=== PATIENT | female | born 1945 | race Two or more races ===

== ENCOUNTER → 2022-09-17 | Outpatient (CLI) | payer MEDICARE ==
--- NOTE | 2022-09-19 20:42 | PE ---
EXAMINATION TYPE: PET CT fusion skull to thigh DATE OF EXAM: 09/17/2022 CLINICAL INDICATION:Female, 77 years old with history of R91.1; TECHNIQUE: Following the intravenous administration of 11.2 mCi of F-18 FDG, whole body images are performed from the skull base to the midthigh. Images are reviewed on the computer in the coronal, a xial, and sagittal planes. Reconstructed rotating images are created on independent workstation and reviewed on the computer. A non-contrast CT is performed in conjunction with the PET scan. Glucose level 87 mg/dL COMPARISON: CT 08/16/2022, PET/CT None, FINDINGS: Mediastinal SUV mean is 1.7. Hepatic parenchyma SUV mean is 2.5. SKULL BASE AND NECK: No suspicious radiotracer activity. CHEST, MEDIASTINUM, AND HILAR REGION: * Right upper lung pulmonary nodule measuring 15 mm with groundglass some surrounding it in totality measuring including the groundglass 24 mm. Max SUV 5.8 * Left upper lobe anterior pulmonary nodule measuring 2.9 x 2.1 cm Max SUV 6.6 * Smaller right upper lobe pulmonary nodule measuring 6 mm Max SUV 0.8. * Partially calcified right subcarinal lymph node. ABDOMEN AND PELVIS: No suspicious radiotracer activity. OSSEOUS STRUCTURES: Right iliac bone FDG avid lesion which appears lucent on CT measuring 23 mm max SUV 7.[address]: Atherosclerosis of the carotid bifurcations. Bilaterally aphakia. Paranasal sinus disease i n the left maxillary sinus with mucosal thickening. Coronary artery atherosclerosis. Heart is mildly enlarged for size. The gallbladder surgically absent. Small hiatal hernia. Fat-containing umbilical h ernia is tiny. Scattered colonic diverticula. Left fat-containing inguinal hernia. IMPRESSION: There are 2 FDG avid pulmonary nodules and one that is below the sensitivity of PET/CT. The largest i n the left upper lobe anteriorly and the right lateral upper lobe are most suspicious. No FDG avid ly mph nodes within the mediastinum are identified. There is additionally FDG avid right iliac bone intr aosseous lesion. Findings could represent left upper lobe primary malignancy with metastatic disease to the right lung. The right iliac bone lesion is unusual given lack of mediastinal other sites of me tastatic disease and could represent a separate etiology. Given its somewhat nonaggressive appearance on CT both malignant and benign etiologies remain in the differential.
== END | disposition home or self-care (01) ==
LOC: RADPETMAIN 09:53
PROVIDERS: ATTEND Internal Medicine
DX: R91.8 Other nonspecific abnormal finding of lung field (principal)
CPT/HCPCS: 78815; A9552

== ENCOUNTER 2022-10-20 06:11 | Day surgery (SDC) | payer MEDICARE ==
[2022-10-18 10:47] VITALS: BMI 29.2
[~2022-10-20 06:11] MED LIST: LACTATED RINGERS 1,000 ML IV SCH
[2022-10-20] MEDS ORDERED: ONDANSETRON 4 MG/2 ML VIAL ONE (07:14)
[2022-10-20] MEDS ORDERED: DEXAMETHASONE SOD PHOSPHATE 4 MG/ML 1 ML VIAL IVP ONE (07:17)
[2022-10-20] MEDS: ONDANSETRON 4 MG/2 ML VIAL IVP ONE ×2 (07:17→09:27)
--- NOTE | 2022-10-20 07:21 | CT ---
EXAMINATION TYPE: CT chest wo con DATE OF EXAM: 10/20/2022 COMPARISON: PET/CT additional nodularity right upper lobe measuring 9.3 mm and 10 mm. Pleural-based m ass right upper lobe HISTORY: pre bronchial navigation CT DLP: 422.[address] of the chest was performed with lung and mediastinal window settings submitted. The la ck of contrast limits evaluation of the vascular, mediastinal and parenchymal structures including th e upper abdomen. LUNGS: Left upper lobe mass medially measures approximately 2.2 x 1.8 x 2 cm. The mass abuts the medi astinum. Additional pleural-based nodule with irregular margins right midlung zone laterally with ple ural extension measures 1.7 x 1.6 cm. Groundglass nodular density right middle lobe anteriorly measur es 9 mm. Additional groundglass nodular density left upper lobe anteriorly measures 1.4 cm image 135. MEDIASTINUM/IMER: Thoracic aorta is of normal caliber with limited evaluation given lack of contrast . 1 cm short axis AP window lymph node. Calcified subcarinal lymph node. Small hiatal hernia noted. UPPER ABDOMEN: No significant abnormality is seen. OTHER: No significant other abnormality. IMPRESSION: 1. Left upper lobe mass as well as several left pulmonary nodules as discussed above. Findings are f elt to reflect malignancy until proven otherwise.
[2022-10-20] MEDS ORDERED: ROCURONIUM 10 MG/ML (5 ML VIAL) IV ONE (07:30)
[2022-10-20] MEDS ORDERED: SUCCINYLCHOLINE CHLORIDE 200 MG/10 ML VIAL IV ONE (07:30)
[2022-10-20] MEDS ORDERED: GLYCOPYRROLATE 0.2 MG/ML 2 ML VIAL ONE (07:30)
[2022-10-20] MEDS ORDERED: fentaNYL (PF) 50 MCG/ML 2 ML AMP ONE (07:30)
[2022-10-20] MEDS ORDERED: PROPOFOL 10 MG/ML 20 ML VIAL IV ONE (07:30)
[2022-10-20] MEDS ORDERED: NEOSTIGMINE 1 MG/ML 10 ML VIAL ONE (07:30)
--- NOTE | 2022-10-20 09:00 | P.PCN ---
Date of Procedure: 10/20/22 Operative Findings: Preoperative Diagnosis: Left upper lobe mass Right upper lobe mass Postoperative Diagnosis: Right upper lobe mass Left upper lobe mass Procedure(s) Performed: Flexible bronchoscopy Robotic-assisted bronchoscopy and addition to radial ultrasound evaluation of the lung mass Robotic-assisted test monitor needle aspirate, transbronchial biopsies, transbronchial brushing of the left upper lobe mass Robotic-assisted test monitor needle aspirate, transbronchial biopsies, transbronchial brushing of the right upper lobe mass in addition to a bronchioloalveolar lavage Anesthesia: DAFNE Surgeon: Larry Clarke Estimated Blood Loss (ml): 0 Pathology: other Condition: stable Disposition: same day Operative Findings: A physical exam was performed. Informed consent was obtained from the patient after explaining all the risks (pneumothorax, life threatening bleeding, infection and adverse effects due to medications), benefits and alternatives to the procedure which the patient appeared to understand and so stated. The patient was connected to the monitoring devices. General anesthesia was induced and the patient was intubated by anesthesia. A final timeout was performed and the procedure confirmed by the attending staff bronchoscopist. The bronchoscope was inserted and the airway examined. The flexible bronchoscope was removed and the robotic bronchoscope was inserted. Registration was completed. I next guided the robotic bronchoscope using the navigation system into the left upper lobe apical segment. Once in proper position, the bronchoscope was frozen. The radial EBUS probe was placed through the bronchoscope and confirmed abnormal u/s images vs normal lung. A needle was placed through the working channel and under fluoroscopic guidance, we sampled the area thought to have the mass twice. We then used a cloud biopsy pattern with ultrasound confirmation for 2 additional passes with the needle. U/S evaluation was then used to reconfirm location. Forceps were next introduced through working channel and extended the appropriate distance and 3 transbronchial biopsies were performed using fluoroscopic guidance. The u/s probe was then reinserted to confirm location. When confirmed this process was repeated for a total of 6 transbronchial biopsies. After reassessment with EBUS, a brush was placed through the extendable working channel for 1 pass with fluoroscopic guidance. U/S evaluation was then used to confirm location. The robotic bronchoscope was then directed to the right upper lobe. I next guided the robotic bronchoscope using navigation system into the anterior s egment of the right upper lobe. Once in proper position, the bronchoscope was frozen. The radial EBUS probe was placed through the bronchoscope and confirmed abnormal u/s images vs normal lung. A needle was placed through the working channel and under fluoroscopic guidance, we sampled the area thought to have the mass twice. We then used a cloud biopsy pattern with ultrasound confirmation for 2 additional passes with the needle. U/S evaluation was then used to reconfirm location. Forceps were next introduced through working channel and extended the appropriate distance and 3 transbronchial biopsies were performed using fluoroscopic guidance. The u/s probe was then reinserted to confirm location. When confirmed this process was repeated for a total of 6 transbronchial biopsies. Was done 40ml of saline was then instilled into the area of the lesion. The robotic bronchoscope was removed and the airway inspected with a flexible bronchoscope and 10 ml of effluent from the BAL was collected. The aspirate was bloody and ultimately declotted and based on that, the sample was discarded. Fluoroscopic check for pneumothorax was negative upon completion of the procedure. There was 0 ml blood loss with the procedure. FINDINGS: 1.The airways appeared normal 2 Successful navigation, ultrasonographic identification, and biopsies of right upper lobe mass 3.The the radial ultrasound view was (Concentric/Eccentric)}. RECOMMENDATIONS: Await pathology and cytology results The referring physician will be alerted to the results when available. The patient was advised to follow up with the referring physician with the biopsy results Patient will be called with results.
--- NOTE | 2022-10-20 09:14 | FL ---
EXAMINATION TYPE: FL bronchoscopy DATE OF EXAM: 10/20/2022 CLINICAL HISTORY: Abnormal lung finding TECHNIQUE: Fluoroscopy. COMPARISON: None. RUL AND RYLIE BX FOR 2 SEPARATE LESIONS, 2MIN 42SEC FL TIME, DAP=[id number]
[2022-10-20 09:17] VITALS: TEMP 97
[2022-10-20] MEDS ORDERED: fentaNYL (PF) 50 MCG/ML 2 ML AMP IVP ONE (09:41)
[2022-10-20] MEDS ORDERED: LACTATED RINGERS 1,000 ML IV ONE (09:52)
--- NOTE | 2022-10-20 09:59 | XR ---
EXAMINATION TYPE: XR chest 1V DATE OF EXAM: 10/20/2022 HISTORY: Status post bronchoscopy. COMPARISON: None. TECHNIQUE: Single view of the chest is submitted. FINDINGS: Demonstrated are scattered senescent parenchymal change. Masslike density periphery of the right upper lobe and left apical region. No evidence for pneumothor ax. The heart is stable. Hilar and mediastinal structures are within normal limits. Degenerative changes are seen of the dorsal spine. IMPRESSION: 1. Masslike density periphery of the right upper lobe and left apical region. No evidence for pneumo thorax.
[2022-10-20 10:36] VITALS: BP 132/72; PULSE 68; RESP 20
== END 2022-10-20 11:01 | disposition home or self-care (01) ==
LOC: ORWHC2ENDO 06:11
PROVIDERS: ATTEND Internal Medicine Critical Care Medicine
DX: C34.12 Malignant neoplasm of upper lobe, left bronchus or lung (principal); C34.11 Malignant neoplasm of upper lobe, right bronchus or lung; E04.9 Nontoxic goiter, unspecified; E78.5 Hyperlipidemia, unspecified; F32.A Depression, unspecified; R00.1 Bradycardia, unspecified; Z87.01 Personal history of pneumonia (recurrent); K44.9 Diaphragmatic hernia without obstruction or gangrene; L71.9 Rosacea, unspecified; M19.90 Unspecified osteoarthritis, unspecified site; M79.7 Fibromyalgia; Z81.1 Family history of alcohol abuse and dependence; Z83.3 Family history of diabetes mellitus; Z82.49 Family history of ischemic heart disease and other diseases of the circulatory system; Z80.9 Family history of malignant neoplasm, unspecified; Z98.51 Tubal ligation status; Z98.49 Cataract extraction status, unspecified eye; Z90.710 Acquired absence of both cervix and uterus; Z90.49 Acquired absence of other specified parts of digestive tract; Z98.890 Other specified postprocedural states; Z79.899 Other long term (current) drug therapy; Z88.4 Allergy status to anesthetic agent; Z88.5 Allergy status to narcotic agent
CPT/HCPCS: 87798 ×3; 87496; 87498; 87529; 88108; 88305; 88173; 88342; 87502; 87634; 88341; 87070; 87205; 87116; 87102; 87206; 71045; 71250; 31628; 31629; 31623; 31624; 31654; J0330; J1100; J2710; J2405; J3010; J2704; S2900; 31633

== ENCOUNTER → 2022-11-04 | Outpatient (CLI) | payer MEDICARE ==
--- NOTE | 2022-11-04 17:32 | MR ---
EXAMINATION TYPE: MR brain wo/w con DATE OF EXAM: 11/04/2022 COMPARISON: None HISTORY: Diagnosed with lung cancer CONTRAST: Performed utilizing 8 mL intravenous Gadavist gadolinium contrast. TECHNIQUE: Multiplanar, multiecho imaging on a 3.0 Mandy magnet is performed through the brain. Stud y is performed within 24 hours of arrival to the hospital. The craniovertebral junction is normal. The pituitary is normal. Diffusion-weighted imaging is performed. No abnormal hyperintensity is present to suggest an acute i ntracranial infarct or acute ischemic change. There are scattered punctate areas of hyperintensity on T2 and Inversion Recovery weighted sequences which are non-specific but can be related to microvascular ischemic changes. Ventricles and sulci are appropriate for the patient age. IMPRESSIONS: 1. No suspicious masses or enhancement to suggest metastatic disease. 2. Scattered punctate deep white matter changes likely on the basis of chronic white matter ischemic type changes.
== END | disposition home or self-care (01) ==
LOC: RADMRIMAIN 07:48
PROVIDERS: ATTEND Internal Medicine Hematology & Oncology
DX: C34.12 Malignant neoplasm of upper lobe, left bronchus or lung (principal); R90.82 White matter disease, unspecified
CPT/HCPCS: 70553; A9585

== ENCOUNTER → 2023-02-27 | Outpatient (CLI) | payer MEDICARE ==
[2023-02-27 12:06] LABS: African American GFR (CKD) >90 (>60 ml/min/1.73 sqM); Blood Urea Nitrogen 13 mg/dL (7-17); Non-African American GFR(CKD) 89 (>60 ml/min/1.73 sqM)
--- NOTE | 2023-02-27 12:47 | CT ---
EXAMINATION TYPE: CT chest w con DATE OF EXAM: 02/27/2023 COMPARISON: Chest CT October 20, 2022 and PET/CT September 17, 2022 HISTORY: Lung and bone CA. CT DLP: 484.0 mGycm. Automated Exposure Control for Dose Reduction was Utilized. TECHNIQUE: CT scan of the thorax is performed following with IV Contrast, patient injected with 100 ml mL of Isovue 300. FINDINGS: LUNGS: Loculated anterior medial left upper lung mass measures 2.7 x 1.6 cm current study axial image 14 versus 3.4 x 2.0 cm prior study axial image 50 fairly stable. Positive treatment response to the smaller spiculated peripheral right midlung mass measuring 1.7 x 1.6 cm prior study image 100 now dolores suring 1.4 x 0.9 cm current study image 21. Smaller ill-defined solid and groundglass nodules are red emonstrated in the bilateral upper to mid lungs. There is new peripheral 2.2 x 1.0 cm left upper lung nodule axial image 13. No pleural effusion or pneumothorax is seen bilaterally. MEDIASTINUM: Stable slightly enlarged 1.6 x 1.2 cm lower prevascular/anterior left hilar lymph node a xial image 27. This was ametabolic on PET. No new greater than 1.0 cm noncalcified thoracic lymph nod es No cardiomegaly or pericardial effusion is seen. Coronary artery calcification is redemonstrated. Stable calcified subcarinal lymph nodes again seen. OTHER: Cholecystectomy clips are redemonstrated. Disc space narrowing at L2-L3 level is redemonstrate d. IMPRESSION: Overall mixed treatment response with some improving and stable areas but new peripheral lesion in the left upper lobe laterally noted.
== END | disposition home or self-care (01) ==
LOC: RADCTMAIN 10:36
PROVIDERS: ATTEND Internal Medicine Hematology & Oncology
DX: C34.12 Malignant neoplasm of upper lobe, left bronchus or lung (principal); C34.2 Malignant neoplasm of middle lobe, bronchus or lung; R91.8 Other nonspecific abnormal finding of lung field
CPT/HCPCS: 82565; 84520; 71260; 36415; Q9967

== ENCOUNTER → 2023-03-16 | Outpatient (CLI) | payer MEDICARE ==
--- NOTE | 2023-03-20 23:21 | PE ---
EXAMINATION TYPE: PET CT fusion skull to thigh DATE OF EXAM: 03/16/2023 COMPARISON: CT chest 02/27/2023 Prior PET/CT: 09/17/2022 HISTORY: Lung cancer TECHNIQUE: Following the intravenous administration of 11.75 mCi of F-18 FDG, whole body images are performed from the skull base to the midthigh. Images are reviewed on the computer in the coronal, a xial, and sagittal planes. Reconstructed rotating images are created on independent workstation and reviewed on the computer. A localization and attenuation correction CT is performed in conjunction with the PET scan. DLP: 707.62 mGycm SCAN: Subsequent Blood glucose: 92 mg/dL Average Mediastinum SUV: 2.4 Average Liver SUV: 3.1 FINDINGS: NECK: No abnormal uptake THORAX: There is increased uptake along the medial anterior left apex with an SUV of 8.15. Example im age 78. Some subtle pleural uptake appears to be present as well. Small nodule in the lateral left ap ex, image 83 does not have significant uptake but has some adjacent pleural uptake. There is a focus of uptake below the sternoclavicular junction with an SUV of 6.96. There is a focus of uptake in the aortopulmonic window image 93, SUV 9.32. An additional hyperintense lymph node is ad jacent to the left main bronchus. Image 98, SUV 12.65. Additional uptake appears to be along the pleural margin at the anterior left lung base, example imag e 127. ABDOMEN: There is uptake along the anterior peritoneal wall, example image 139. PELVIS: No suspicious uptake within the soft tissue pelvis. OSSEOUS STRUCTURES: Large lytic lesion is within the right iliac wing, SUV value along the medial mar gin is 10.76. This appears to extend into the posterior column right acetabulum. LOCALIZATION CT: There is a small left pleural effusion. Minimal pericardial effusion is present. COMPARISON: The anterior medial left apical mass has diminished in size. A previous hyperintense righ t lung nodule has diminished in size and intensity currently measuring 2.67, image 91. The pelvic bon e lesion has increased in size. Mediastinal adenopathy is developing over the interval IMPRESSION: 1. Diminished intensity in size of right and left lung upper lung field nodules. 2. Developing pleural increasing intensity. Neoplastic Pleural involvement should be considered. 3. Developing mediastinal lymphadenopathy. 4. Marked enlargement of the lytic lesion of the right iliac wing. 5. Interval development of a small left pleural effusion and minimal pericardial effusion
== END | disposition home or self-care (01) ==
LOC: RADPETMAIN 09:01
PROVIDERS: ATTEND Internal Medicine Hematology & Oncology
DX: C34.12 Malignant neoplasm of upper lobe, left bronchus or lung (principal); J90 Pleural effusion, not elsewhere classified; I31.39 Other pericardial effusion (noninflammatory); R91.8 Other nonspecific abnormal finding of lung field; R59.0 Localized enlarged lymph nodes
CPT/HCPCS: 78815; A9552

== ENCOUNTER → 2023-05-19 | Outpatient (CLI) | payer MEDICARE ==
--- NOTE | 2023-05-19 18:21 | US ---
EXAMINATION TYPE: US chest DATE OF EXAM: 05/19/2023 COMPARISON: 05/16/2023 - XR Chest CLINICAL INDICATION: Female, 77 years old with history of J90 PLEURAL EFFUSION, NOT ELSEWHERE CLASSIF IED; TECHNIQUE: Targeted ultrasound of the posterior lower left hemithorax EXAM MEASUREMENTS: Right Pleural Effusion pocket size: NA cm Right skin surface to fluid distance: NA cm Left Pleural Effusion pocket size: 4.3 cm Left skin surface to fluid distance: 2.4 cm Left side marked for possible thoracentesis outside the dept. Pulmonologists are able to review the images in the patient?s EMR. IMPRESSIONS: A small to moderate left pleural effusion.
== END | disposition home or self-care (01) ==
LOC: RADUSWWP 11:40
PROVIDERS: ATTEND Internal Medicine
DX: J90 Pleural effusion, not elsewhere classified (principal)
CPT/HCPCS: 76604

== ENCOUNTER → 2023-05-19 | Day surgery (SDC) | payer MEDICARE ==
[~2023-05-19] MED LIST changes: -LACTATED RINGERS 1,000 ML IV SCH; +SODIUM CHLORIDE 0.9% 500 ML 500 ML in EMPTY BAG 1 BAG IV PRN
[2023-05-19 14:04] VITALS: PULSE 109; RESP 20
--- NOTE | 2023-05-19 14:23 | XR ---
EXAMINATION TYPE: XR chest 1V portable DATE OF EXAM: 05/19/2023 COMPARISON: 05/16/2023. HISTORY: Post left thoracentesis. TECHNIQUE: Single frontal view of the chest is obtained. IMPRESSION: There is a large left pleural effusion is slightly smaller than the previous examination. No pneumoth orax is seen. Some patchy parenchymal interstitial changes are seen within the right lung which are very similar to the previous examination. The cardiac silhouette is not well evaluated.
--- NOTE | 2023-05-19 20:28 | OP ---
OPERATIVE REPORT DATE OF SERVICE : PROCEDURE PERFORMED: Left-sided thoracentesis. PREOPERATIVE DIAGNOSIS: Left pleural effusion. POSTOPERATIVE DIAGNOSIS: Left pleural effusion. ANESTHESIA: Used 4 mL of 1% lidocaine. DESCRIPTION OF PROCEDURE: The patient was placed in a sitting upright position, the area below the left scapula was prepared in a sterile fashion. Drapes were applied. The fluid was earlier localized by ultrasound, and the marking was placed at the level of the 8th intercostal space and posterior axillary line. This was done by ammonia refrigeration technician down in the radiology department prior to the procedure. Again, the patient was placed in a supine position, area was prepared in a sterile fashion. Drapes were applied, and at that same level marking, the area was locally anesthetized with lidocaine. Then, a 26-gauge needle inserted at the same site, advanced into the pleural space, fluid was localized with the needle. Then a small tiny incision was made, and a standard thoracentesis catheter and needle were used, inserted at the same site, and as the fluid was obtained from the pleural space, the catheter was advanced over the needle into the pleural space, and the needle was pulled out of the pleural space. Freely flowing fluid was removed, I removed a total of 900 mL of slightly greenish colored fluid, nonbloody, fluid was sent for different diagnostic studies. The procedure was well tolerated, no complications, chest x-ray postoperatively showed no complication, but there was not a significant expansion noted in the left lower lobe post the procedure. Again, improved but not completely expanded. The left lower lobe noted. MMODL / IJN: [id number] /
[2023-05-20 04:17] LABS: Appearance,BF Clear (Clear)
[2023-05-20 06:57] LABS: Glucose, BF Source Pleural fluid; Glucose, Body Fluid 57 mg/dL; LDH, Body Fluid Source Pleural fluid; T. Protein, Body Fluid Source Pleural fluid; Total Protein, Body Fluid >3600 mg/dL
== END ==
LOC: PROCWHC3 13:23
PROVIDERS: ATTEND Internal Medicine
DX: J90 Pleural effusion, not elsewhere classified (principal)
CPT/HCPCS: 32554; 71045; 82945; 83615; 84157; 87070; 87075; 87205; 88108; 88305; 88341; 88342; 89050

== ENCOUNTER 2023-05-30 12:36 | Emergency (ER) | payer MEDICARE ==
--- NOTE | 2023-05-30 13:02 | ED ---
General Adult HPI - General Chief complaint: Shortness of Breath Stated complaint: SOB,Transfer from [facility] Time Seen by Provider: 05/30/23 12:43 Source: patient, family, RN/MD, EMS, RN notes reviewed, old records reviewed (X- ray prior to arrival) Mode of arrival: EMS Limitations: no limitations - History of Present Illness Initial comments: Patient is a pleasant 77-year-old female present to the emergency department with some shortness of breath. Patient has stage IV lung cancer with chronic effusion. Patient did have this drained prior to arrival. Chest x-ray following this did show some trapped lung/pneumothorax. Patient states her breathing is improved overall since prior to the procedure however still feels somewhat short of breath. Patient states is approximately 10 to 20% improved from before the procedure. Patient also has some chronic pain in this region which is also improved and mild at this time. - Related Data Home Medications Medication Instructions Recorded Confirmed Atorvastatin [Lipitor] 10 mg PO DAILY 09/29/22 05/30/23 DULoxetine HCL [Cymbalta] 30 mg PO DAILY 09/29/22 05/30/23 Lisinopril-Hctz 20-25 mg 1 tab PO DAILY 09/29/22 05/30/23 [Zestoretic 20-25] methIMAzole [Tapazole] 5 mg PO DAILY 09/29/22 05/30/23 HYDROcodone/APAP 7.5-325MG [[place] 1 tab PO Q6HR PRN 05/30/23 05/30/23 7.5-325] Allergies Allergy/AdvReac Type Severity Reaction Status Date / Time codeine Allergy chest pain Verified 05/30/23 16:56 & EMERALD lidocaine Allergy chest pain Verified 05/30/23 16:56 & EMERALD morphine Allergy chest pain Verified 05/30/23 16:56 & EMERALD Review of Systems ROS Statement: Those systems with pertinent positive or pertinent negative responses have been documented in the HPI. ROS Other: All systems not noted in ROS Statement are negative. Constitutional: Denies: fever Eyes: Denies: eye pain ENT: Denies: ear pain Respiratory: Reports: as per HPI, dyspnea Cardiovascular: Reports: as per HPI Past Medical History Past Medical History: Cancer, Hyperlipidemia, Hypertension, Thyroid Disorder Additional Past Medical History / Comment(s): spot in pelvis and dr. Ryan saw spot on lung Patient has sciatica pain on left side taking some tylenol for pain 10/18/22, lung CA History of Any Multi-Drug Resistant Organisms: None Reported Past Surgical History: Appendectomy, Cholecystectomy, Hysterectomy Additional Past Surgical History / Comment(s): Colonoscopy Additional Past Anesthesia/Blood Transfusion Reaction / Comment(s): Pain in chest after sedation. No blood transfusion Past Psychological History: No Psychological Hx Reported Smoking Status: Former smoker Past Alcohol Use History: None Reported Past Drug Use History: None Reported - Past Family History Mother Family Medical History: Cancer Additional Family Medical History / Comment(s): multiple myeloma Sister(s) Family Medical History: Cancer Additional Family Medical History / Comment(s): multiple myeloma Brother(s) Family Medical History: Cancer Additional Family Medical History / Comment(s): lung cancer General Exam Limitations: no limitations General appearance: alert, in no apparent distress Head exam: Present: normocephalic Eye exam: Present: normal appearance Neck exam: Present: normal inspection Respiratory exam: Present: decreased breath sounds ( left base) Cardiovascular Exam: Present: regular rate, normal rhythm GI/Abdominal exam: Present: soft. Absent: tenderness Extremities exam: Present: normal inspection. Absent: pedal edema, calf tenderness Neurological exam: Present: alert Psychiatric exam: Present: normal affect, normal mood Skin exam: Present: normal color Course Vital Signs 05/30/23 05/30/23 05/30/23 12:38 13:32 14:00 Temperature 98.3 F Pulse Rate 105 H Respiratory 18 20 Rate Blood Pressure 106/63 116/75 O2 Sat by Pulse 94 L 96 Oximetry 05/30/23 15:00 Temperature Pulse Rate Respiratory Rate Blood Pressure 131/77 O2 Sat by Pulse 94 L Oximetry Medical Decision Making - Medical Decision Making Was pt. sent in by a medical professional or institution (, PA, TEACHER OF THE HANDIC[employer]ED, urgent care, hospital, or prison...) When possible be specific @ -Patient was sent from [facility] procedure Did you speak to anyone other than the patient for history (EMS, parent, family, police, friend...)? What history was obtained from this source @ -I did speak with Dr. Moran who provided history of procedure of patient prior to arrival Did you review nursing and triage notes (agree or disagree)? Why? @ -I reviewed and agree with nursing and triage notes Were old charts reviewed (outside hosp., previous admission, EMS record, old EKG, old radiological studies, urgent care reports/EKG's, prison records)? Report findings @ -Previous chest x-ray from today reviewed done as an outpatient Differential Diagnosis (chest pain, altered mental status, abdominal pain women, abdominal pain men, vaginal bleeding, weakness, fever, dyspnea, syncope, headache, dizziness, GI bleed, back pain, seizure, CVA, palpatations, mental health, musculoskeletal)? @ -Differential Dyspnea: Coronary syndrome, arrhythmia, tamponade, asthma, COPD, pulmonary embolism, pneumonia, pneumothorax, pulmonary effusion, anaphylaxis, diabetic ketoacidosis, flailed chest, pulmonary contusion, diaphragmatic rupture, anemia, neuromuscular, this is not meant to be an all-inclusive list. EKG interpreted by me (3pts min.). @ -As above X-rays interpreted by me (1pt min.). @ -Chest x-ray shows moderate left-sided lung trapping similar to previous chest x-ray done today CT interpreted by me (1pt min.). @ -None done U/S interpreted by me (1pt. min.). @ -None done What testing was considered but not performed or refused? (CT, X-rays, U/S, labs)? Why? @ -None What meds were considered but not given or refused? Why? @ -Considered Thora vent however x-ray is unchanged Did you discuss the management of the patient with other professionals (professionals i.e. , PA, TE[employer], lab, RT, psych nurse, social media developer, research group director, teacher, correction officer penitentiary, case worker)? Give summary @ -Case was discussed with Dr. Sanchez who is familiar with this patient. He states if x-ray after 3 and half hours is unchanged patient can be discharged. Was smoking cessation discussed for >3mins.? @ -No Was critical care preformed (if so, how long)? @ -No Were there social determinants of health that impacted care today? How? (Homel essness, low income, unemployed, alcoholism, drug addiction, transportation, low edu. Level, literacy, decrease access to med. care, senior care, rehab)? @ -No Was there de-escalation of care discussed even if they declined (Discuss DNR or withdrawal of care, Hospice)? DNR status @ -No What co-morbidities impacted this encounter? (DM, HTN, Smoking, COPD, CAD, Cancer, CVA, ARF, Chemo, Hep., AIDS, mental health diagnosis, sleep apnea, morbid obesity)? @ -Lung cancer Was patient admitted / discharged? Hospital course, mention meds given and route, prescriptions, significant lab abnormalities, going to OR and other pertinent info. @ -Patient reevaluated. Pulse ox 97% on room air. Patient is symptom-free and comfortable with discharge home. Chest x-ray is unchanged and patient will be discharged as discussed previously with Dr. Moran. Undiagnosed new problem with uncertain prognosis? @ -No Drug Therapy requiring intensive monitoring for toxicity (Heparin, Nitro, Insulin, Cardizem)? @ -No Were any procedures done? @ -No Diagnosis/symptom? @ -Trapped lung Acute, or Chronic, or Acute on Chronic? @ -Acute Uncomplicated (without systemic symptoms) or Complicated (systemic symptoms)? @ -Default Side effects of treatment? @ -No Exacerbation, Progression, or Severe Exacerbation? @ -No Poses a threat to life or bodily function? How? (Chest pain, [place], [place], pneumonia, PE, COPD, DKA, ARF, appy, cholecystitis, CVA, Diverticulitis, Homicidal, Suicidal, threat to staff... and all critical care pts) @ -No Disposition Clinical Impression: Trapped lung Disposition: HOME SELF-CARE Condition: Stable Instructions (If sedation given, give patient instructions): Traumatic Pneumothorax (ED) Additional Instructions: Please follow-up with primary care physician and Dr. Sanchez in the next 1 or 2 days for recheck. Return immediately for difficulty breathing, pain, worsening or changing symptoms or any other concerns. Is patient prescribed a controlled substance at d/c from ED?: No Referrals: Bettye Hi MD [Primary Care Provider] - 1-2 days Ross Ryan MD [STAFF PHYSICIAN] - 1-2 days Time of Disposition: 17:00
[2023-05-30 13:30] VITALS: PULSE 105
[2023-05-30 14:02] VITALS: RESP 20
[2023-05-30] MEDS: HYDROcodone/APAP 7.5-325MG 1 EACH TAB PO ONE (14:37)
--- NOTE | 2023-05-30 16:37 | XR ---
EXAMINATION TYPE: XR chest 2V DATE OF EXAM: 05/30/2023 4:27 PM CLINICAL INDICATION:Female, 77 years old with history of Trapped lung; [facility] COMPARISON: Chest radiographs from same day TECHNIQUE: XR chest 2V Frontal and lateral views of the chest. FINDINGS: FINDINGS: Lungs/Pleura: There is moderate left pneumothorax. Similar to prior exam. There is no evidence of ple ural effusion, focal consolidation, or right pneumothorax. Pulmonary vascularity: Unremarkable. Heart/mediastinum: Cardiomediastinal silhouette is unremarkable. Musculoskeletal: No acute osseous pathology. IMPRESSION: Stable moderate left pneumothorax.
[2023-05-30 17:39] VITALS: BP 132/86
[2023-05-30 18:08] VITALS: TEMP 98.1
== END 2023-05-30 17:44 | disposition home or self-care (01) ==
LOC: EC 12:36
DX: J98.4 Other disorders of lung (principal); I10 Essential (primary) hypertension; E78.5 Hyperlipidemia, unspecified; Z79.899 Other long term (current) drug therapy; Z88.5 Allergy status to narcotic agent; Z88.4 Allergy status to anesthetic agent; Z87.891 Personal history of nicotine dependence; Z90.49 Acquired absence of other specified parts of digestive tract; Z85.118 Personal history of other malignant neoplasm of bronchus and lung
CPT/HCPCS: 71046; 99285

== ENCOUNTER → 2023-05-30 | Day surgery (SDC) | payer MEDICARE ==
[2023-05-30 11:54] VITALS: BP 135/82; PULSE 109; RESP 16; TEMP 97.7
--- NOTE | 2023-05-30 12:40 | XR ---
EXAMINATION TYPE: XR chest 1V portable DATE OF EXAM: 05/30/2023 12:27 PM CLINICAL INDICATION:Female, 77 years old with history of POST thoracentesis; COMPARISON: Chest radiographs from 05/19/2023. TECHNIQUE: XR chest 1V portable Frontal view of the chest. FINDINGS: Lungs/Pleura: There is moderate left pneumothorax with decrease in left pleural effusion. There is no evidence of pleural effusion, focal consolidation, or right pneumothorax. Pulmonary vascularity: Unremarkable. Heart/mediastinum: Cardiomediastinal silhouette is unremarkable. Musculoskeletal: No acute osseous pathology. IMPRESSION: Left thoracentesis with new moderate left pneumothorax. Decrease in left pleural effusion. Findings communicated to Dr. Kurtis Clarke on 05/30/2023 12:[address] Win Person.
--- NOTE | 2023-05-30 13:05 | OP ---
OPERATIVE REPORT DATE OF SERVICE : PROCEDURE PERFORMED: Left-sided thoracentesis. PREOPERATIVE DIAGNOSIS: Left-sided malignant pleural effusion. POSTOPERATIVE DIAGNOSIS: Left-sided malignant pleural effusion. ANESTHESIA USED: 2 mL of 1% lidocaine. DESCRIPTION OF PROCEDURE: The patient was placed in a sitting upright position, the area below the left scapula was prepared in a sterile fashion and drapes were applied. The area of the fluid was earlier localized by ultrasound, and the marking was roughly at the 8th intercostal space and tip of the scapula. The area was locally anesthetized with lidocaine. Then, the 26-gauge needle was inserted into the pleural space until the fluid was localized with a needle. A small tiny incision was made, and a standard thoracentesis catheter and needle were used advanced at the same site into the pleural space, fluid was obtained and the catheter was advanced over the needle, and the needle was pulled out of the pleural space. Freely flowing fluid, the fluid was dark green in color. Roughly about 600 mL of fluid were removed. At the end of the case, there was definitely significant amount of air noted in the collecting container, and all the air was suctioned until completely suctioned [place]. A chest x-ray postoperatively showed evidence of loculated pneumothorax in the left lower lobe area. Hence, the patient may have developed either a pneumothorax or a trapped lung. The patient will be admitted and observed for the next few hours and possibly overnight depending on the followup chest x-ray in 4 hours. Procedure was complicated by possibly a trapped lung or a pneumothorax. This will require observation at least for the next 4 to 5 hours and repeat chest x-ray done. Discussed the situation with the ER physician, no beds available in house, the patient will be sent to the ER for observation and again repeat chest x-ray in few hours. MMODL / IJN: [id number] /
== END ==
LOC: PROCWHC3 10:54
PROVIDERS: ATTEND Internal Medicine
DX: J91.0 Malignant pleural effusion (principal)
CPT/HCPCS: 32554; 71045

== ENCOUNTER → 2023-05-30 | Outpatient (CLI) | payer MEDICARE ==
--- NOTE | 2023-05-30 21:22 | US ---
EXAMINATION TYPE: US chest DATE OF EXAM: 05/30/2023 COMPARISON: 05/23/2023 CLINICAL INDICATION: Female, 77 years old with history of J90 PLEURAL EFFUSION; TECHNIQUE: Targeted ultrasound of the posterior lower bilateral hemithoraces EXAM MEASUREMENTS: Right Pleural Effusion pocket size: 0 cm Left Pleural Effusion pocket size: 8.9 cm Left skin surface to fluid distance: 2.4 cm Right side not marked for possible thoracentesis outside the dept. Left side marked for possible thoracentesis outside the dept. Pulmonologists are able to review the images in the patient?s EMR. IMPRESSIONS: A moderate left pleural effusion is noted. Underlying atelectatic lung.
== END | disposition home or self-care (01) ==
LOC: RADUSWWP 10:57
PROVIDERS: ATTEND Internal Medicine
DX: J90 Pleural effusion, not elsewhere classified (principal); J98.11 Atelectasis
CPT/HCPCS: 76604

== ENCOUNTER → 2023-07-20 | Outpatient (CLI) | payer MEDICARE ==
--- NOTE | 2023-07-20 18:50 | PE ---
EXAMINATION TYPE: PET CT fusion skull to thigh DATE OF EXAM: 07/20/2023 CLINICAL INDICATION:Female, 78 years old with history of C34.12 LUNG CANCER; TECHNIQUE: Following the intravenous administration of 9.35 mCi of F-18 FDG, whole body images are performed from the skull base to the midthigh. Images are reviewed on the computer in the coronal, a xial, and sagittal planes. Reconstructed rotating images are created on independent workstation and reviewed on the computer. A non-contrast CT is performed in conjunction with the PET scan. Glucose level 101 mg/dL CT DLP: 410 mGycm, Automated exposure control for dose reduction was used. COMPARISON: CT 02/27/2023, PET/CT 03/06/2023, FINDINGS: Mediastinal SUV mean is 1.8. Hepatic parenchyma SUV mean is 2.7. SKULL BASE AND NECK: No abnormal uptake definitively visualized. CHEST, MEDIASTINUM, AND HILAR REGION: * Scattered abnormal uptake throughout the thorax including left apical medial anterior mass max SUV 10.0, previously 11.3. This is increased in volume on today's exam measuring 46 x 36r previously 25 x 24 mm. This extends into the soft tissues of the left neck into the mediastinum.. * Scattered areas around along the left pleura which have increased in size and bulkiness. Examples inc lude: * Superior posteriorly max SUV 5.5, previously 4.2 * medially in the level of the AP window max SUV 9.2, previously 12.7. * Posterior medial pleura is SUV 8.2, previously 4.9., * Inferiorly along the anterior pleural max SUV 9.7, previously 8.0. Right upper lung pulmonary nodule with increased metabolic activity with spiculated borders measuring 12 mm, previously 10 mm Max SUV 5.3, previously 3.8. ABDOMEN AND PELVIS: No suspicious radiotracer activity. MUSCULOSKELETAL STRUCTURES: Scattered metastatic lesions throughout the osseous structures. Examples include: * Right iliac bone max SUV 5.8, previously 10.4 * laterally near the iliac crest max SUV 9.1, previously 4.5. * Left posterior iliac bone max SUV 5.8, previously 2.9 * Sacrum max SUV 7.8, previously 2.8, * L5 vertebrae max SUV 8.8, previously 3.6. * L4 vertebrae max SUV 11.0, previously 3.5 * Posterior elements of T10 max SUV 10.0, previously 4.6. OTHER CT: Bilaterally aphakia. Atherosclerosis of the carotid bifurcations. The gallbladder surgicall y absent. Large stool throughout the colon. Scattered colonic diverticula. Left thoracotomy tube term inating in the left pleural space. IMPRESSION: Progression of disease with increased size with mildly diminished FDG activity of the left apical viviana g mass. There is increased soft tissue surrounding the pleura with increased metabolic activity. Opac ity there is increasing FDG activity and number of osseous metastatic disease.
== END | disposition home or self-care (01) ==
LOC: RADPETMAIN 12:08
PROVIDERS: ATTEND Internal Medicine Hematology & Oncology
DX: C79.51 Secondary malignant neoplasm of bone (principal); C34.12 Malignant neoplasm of upper lobe, left bronchus or lung; J94.8 Other specified pleural conditions; R91.8 Other nonspecific abnormal finding of lung field
CPT/HCPCS: 78815; A9552

== ENCOUNTER 2023-07-27 17:03 | Inpatient (IN) | payer MEDICARE ==
[2023-07-27] MEDS ORDERED: NALOXONE 0.4 MG/ML 1 ML VIAL IV PRN (17:25)
[2023-07-27] MEDS: SODIUM CHLORIDE 0.9% 1,000 ML IV SCH (17:48)
[2023-07-27] MEDS: SODIUM CHLORIDE 0.9% 500 ML 500 ML IV STA (17:48)
[2023-07-27] MEDS: HYDROmorphone 1 MG/ML 1 ML SYRINGE IVP STA (18:09)
[2023-07-27] MEDS: ONDANSETRON 4 MG/2 ML VIAL IVP STA (18:10)
[2023-07-27 18:28] LABS: ALT 11 U/L (4-34); AST 26 U/L (14-36); African American GFR (CKD) >90 (>60 ml/min/1.73 sqM); Alkaline Phosphatase 210 U/L (38-126); Anion Gap 5 mmol/L; Blood Urea Nitrogen 8 mg/dL (7-17); Calcium 7.4 mg/dL (8.4-10.2); Carbon Dioxide 25 mmol/L (22-30); Chloride 99 mmol/L (98-107); Glucose 94 mg/dL (74-99); Non-African American GFR(CKD) >90 (>60 ml/min/1.73 sqM); Phosphorus 1.4 mg/dL (2.5-4.5); Potassium 3.8 mmol/L (3.5-5.1); Sodium 129 mmol/L (137-145); Total Bilirubin 0.8 mg/dL (0.2-1.3); Total Protein 6.2 g/dL (6.3-8.2)
[2023-07-27 18:36] LABS: NT-Pro-B-Type Natriuretic Pept 299 pg/mL
[2023-07-27 18:42] LABS: Basophils % (A) 0 %; Eosinophils % (A) 0 %; HCT 37.7 % (34.0-46.0); HGB 11.6 gm/dL (11.4-16.0); Lymphocytes # (A) 0.9 k/uL (1.0-4.8); Lymphocytes % (A) 9 %; MCH 25.7 pg (25.0-35.0); MCHC 30.8 g/dL (31.0-37.0); MCV 83.4 fL (80.0-100.0); Mean Platelet Volume 6.8; Monocytes # (A) 0.8 k/uL (0-1.0); Monocytes % (A) 8 %; Neutrophils # (A) 7.9 k/uL (1.3-7.7); Neutrophils % (A) 80 %; Platelet Count 263 k/uL (150-450); RBC 4.53 m/uL (3.80-5.40); RDW 14.7 % (11.5-15.5); WBC 9.8 k/uL (3.8-10.6)
--- NOTE | 2023-07-27 19:34 | ED ---
Recheck HPI - General Chief Complaint: Back Pain/Injury Stated Complaint: Flank pain Time Seen by Provider: 07/27/23 17:13 Source: EMS, RN notes reviewed, old records reviewed Mode of arrival: EMS Limitations: no limitations - History of Present Illness Initial Comments: This is a 78-year-old female to the ER for evaluation today. Patient presents today for evaluation of severe pain severe history of cancer pain with uncontrolled cancer pain currently. Patient states her pain is out of control and she is uncomfortable, very emotional during physical exam MD Complaint: medication refill request -: unknown Returns Today for: persistent/worsening pain related to initial visit Symptoms Since Prior Visit: worsening pain Context: planned re-check Associated Symptoms: none Treatments Prior to Arrival: Given Pain Meds on - Related Data Home Medications Medication Instructions Recorded Confirmed Atorvastatin [Lipitor] 10 mg PO DAILY 09/29/22 07/27/23 Lisinopril-Hctz 20-25 mg 1 tab PO DAILY 09/29/22 07/27/23 [Zestoretic 20-25] Cyclobenzaprine [Flexeril] 5 mg PO TID PRN 07/27/23 07/27/23 HYDROcodone/APAP 10-325MG [[place] 1 tab PO Q6HR PRN 07/27/23 07/27/23 10-325] Ondansetron Odt [Zofran ODT] 8 mg PO Q8HR PRN 07/27/23 07/27/23 Sotorasib [Lumakras] 360 mg PO BID 07/27/23 07/27/23 fentaNYL 25MCG/HR PATCH [Duragesic 25 mcg TRANSDERM Q72H 07/27/23 07/27/23 25MCG/HR] fentaNYL 50MCG/HR PATCH [Duragesic 50 mcg TRANSDERM Q72H 07/27/23 07/27/23 50MCG/HR] Previous Rx's Medication Instructions Recorded Desipramine [Norpramin] 25 mg PO HS #30 tablet 07/28/23 Naproxen [Naprosyn] 250 mg PO BID #60 tab 08/01/23 Pantoprazole [Protonix] 40 mg PO AC-BID #60 tab 08/01/23 Psyllium Husk 100% [Metamucil 6 gm PO BID packet 08/01/23 Packet] droNABinol [Marinol] 5 mg PO AC-BID #60 cap 08/01/23 Allergies Allergy/AdvReac Type Severity Reaction Status Date / Time codeine Allergy chest pain Verified 08/04/23 14:44 & EMERALD lidocaine Allergy chest pain Verified 08/04/23 14:44 & EMERALD morphine Allergy chest pain Verified 08/04/23 14:44 & EMERALD Review of Systems ROS Statement: Those systems with pertinent positive or pertinent negative responses have been documented in the HPI. ROS Other: All systems not noted in ROS Statement are negative. Past Medical History Past Medical History: Cancer, Fibromyalgia, Hyperlipidemia, Hypertension, Thyroid Disorder Additional Past Medical History / Comment(s): spot in pelvis(metastsis) and dr. Ryan saw spot on lung Patient has sciatica pain on left side taking some tylenol for pain 10/18/22, lung CA, hyperthyroidism History of Any Multi-Drug Resistant Organisms: None Reported Past Surgical History: Appendectomy, Cholecystectomy, Hysterectomy, Joint Replacement Additional Past Surgical History / Comment(s): Colonoscopy, bilat. TKR, Lt. shoulder repair Past Anesthesia/Blood Transfusion Reactions: No Reported Reaction Additional Past Anesthesia/Blood Transfusion Reaction / Comment(s): Pain in chest after sedation - from the morphine(allergy). No blood transfusion Past Psychological History: No Psychological Hx Reported Smoking Status: Former smoker Past Alcohol Use History: None Reported Past Drug Use History: None Reported - Past Family History Mother Family Medical History: Cancer Additional Family Medical History / Comment(s): multiple myeloma Sister(s) Family Medical History: Cancer Additional Family Medical History / Comment(s): multiple myeloma Brother(s) Family Medical History: Cancer Additional Family Medical History / Comment(s): lung cancer General Exam Limitations: no limitations General appearance: alert, in no apparent distress Head exam: Present: atraumatic, normocephalic, normal inspection Eye exam: Present: normal appearance, PERRL, EOMI. Absent: scleral icterus, co njunctival injection, periorbital swelling ENT exam: Present: normal exam, mucous membranes moist Neck exam: Present: normal inspection. Absent: tenderness, meningismus, lymphadenopathy Respiratory exam: Present: normal lung sounds bilaterally. Absent: respiratory distress, wheezes, rales, rhonchi, stridor Cardiovascular Exam: Present: regular rate, normal rhythm, normal heart sounds. Absent: systolic murmur, diastolic murmur, rubs, gallop, clicks GI/Abdominal exam: Present: soft, normal bowel sounds. Absent: distended, tenderness, guarding, rebound, rigid Extremities exam: Present: normal inspection, full ROM, normal capillary refill. Absent: tenderness, pedal edema, joint swelling, calf tenderness Back exam: Present: normal inspection Neurological exam: Present: alert, oriented X3, CN II-XII intact Psychiatric exam: Present: normal affect, normal mood Skin exam: Present: warm, dry, intact, normal color. Absent: rash Course Vital Signs 07/27/23 07/27/23 07/28/23 17:08 21:00 02:17 Temperature 98.7 F 98.8 F Pulse Rate 107 H 104 H 60 Respiratory 16 16 16 Rate Blood Pressure 157/76 137/97 125/76 O2 Sat by Pulse 98 95 95 Oximetry 07/28/23 07/28/23 07/28/23 04:39 07:08 11:34 Temperature 98.5 F 98.3 F 98 F Pulse Rate 62 108 H 107 H Respiratory 16 14 18 Rate Blood Pressure 122/72 117/74 104/64 O2 Sat by Pulse 96 94 L 98 Oximetry 07/28/23 07/28/23 07/28/23 16:00 18:51 21:00 Temperature 98.4 F 98.1 F 97.8 F Pulse Rate 70 68 97 Respiratory 18 18 16 Rate Blood Pressure 100/68 105/78 113/69 O2 Sat by Pulse 96 96 96 Oximetry 07/29/23 03:31 Temperature Pulse Rate 109 H Respiratory 18 Rate Blood Pressure 108/66 O2 Sat by Pulse 100 Oximetry - Reevaluation(s) Reevaluation #1: 07/27/23 19:32 Medical records reviewed Reevaluation #2: 07/27/23 19:33 Patient's pain is improved Reevaluation #3: 07/27/23 19:33 Patient informed of results and questions answered Reevaluation #4: Was pt. sent in by a medical professional or institution (, PA, TAX ECONOMIST, urgent care, hospital, or skilled nursing...) When possible be specific @ -no Did you speak to anyone other than the patient for history (EMS, parent, family, police, friend...)? What history was obtained from this source @ -no Did you review nursing and triage notes (agree or disagree)? Why? @ -agree Are old charts reviewed (outside hosp., previous admission, EMS record, old EKG, old radiological studies, urgent care reports/EKG's, skilled nursing records)? Report findings @ -yes Differential Diagnosis (chest pain, altered mental status, abdominal pain women, abdominal pain men, vaginal bleeding, weakness, fever, dyspnea, syncope, headache, dizziness, GI bleed, back pain, seizure, CVA, palpatations, mental health, musculoskeletal)? @ -prior EKG interpreted by me (3pts min.). @ -no X-rays interpreted by me (1pt min.). @ -no CT interpreted by me (1pt min.). @ -no U/S interpreted by me (1pt. min.). @ -no What testing was considered but not performed or refused? (CT, X-rays, U/S, labs)? Why? @ -none What meds were considered but not given or refused? Why? @ -none Did you discuss the management of the patient with other professionals (professionals i.e. , PA, TAX ECONOMIST, lab, RT, psych nurse, foster care social worker, solids control technician, teacher, landing signal officer, patient case manager)? Give summary @ -no Was smoking cessation discussed for >3mins.? @ -no Was critical care preformed (if so, how long)? @ -no Were there social determinants of health that impacted care today? How? (Homelessness, low income, unemployed, alcoholism, drug addiction, transportation, low edu. Level, literacy, decrease access to med. care, group home, rehab)? @ -none Was there de-escalation of care discussed even if they declined (Discuss DNR or withdrawal of care, Hospice)? DNR status @ -no What co-morbidities impacted this encounter? (DM, HTN, Smoking, COPD, CAD, Cancer, CVA, ARF, Chemo, Hep., AIDS, mental health diagnosis, sleep apnea, m orbid obesity)? @ -none Was patient admitted / discharged? Hospital course, mention meds given and route, prescriptions, significant lab abnormalities, going to OR and other pertinent info. @ - 78 female will be admitted for chronic pain cancer pain. Patient admitted for pain control Admitted Undiagnosed new problem with uncertain prognosis? @ -no Drug Therapy requiring intensive monitoring for toxicity (Heparin, Nitro, Insulin, Cardizem)? @ -no Were any procedures done? @ -no Diagnosis/symptom? @ -Chronic pain and cancer pain Acute, or Chronic, or Acute on Chronic? @ -Acute Uncomplicated (without systemic symptoms) or Complicated (systemic symptoms)? @ -Complicated Side effects of treatment? @ -no Exacerbation, Progression, or Severe Exacerbation? @ -exacerbation Poses a threat to life or bodily function? How? (Chest pain, [place], [place], pneumonia, PE, COPD, DKA, ARF, appy, cholecystitis, CVA, Diverticulitis, Homicidal, Suicidal, threat to staff... and all critical care pts) @ -yes with extremes of age Reevaluation #5: Differential Weakness: Hypoglycemia, shock, sepsis, hyponatremia, anemia, infection, [place], ETOH, adverse medicine reaction, overdose, stroke, this is not meant to be an all-inclusive list. - Consultations Consultation #1: Spoke with [facility] who agrees to admit this patient Medical Decision Making - Medical Decision Making 78 female will be admitted for chronic pain cancer pain. Patient admitted for pain control - Lab Data Result diagrams: 07/28/23 07:10 07/31/23 03:29 - Radiology Data Radiology results: report reviewed (Chest x-ray is negative for acute disease), image reviewed Disposition Clinical Impression: Chronic pain, Cancer associated pain Disposition: ADMITTED IP TO THIS [facility] Condition: Fair Is patient prescribed a controlled substance at d/c from ED?: No Time of Disposition: 19:00
[2023-07-27] MEDS ORDERED: CYCLOBENZAPRINE 5 MG TAB PO PRN (19:37)
[2023-07-27] MEDS: SOTORASIB 120 MG PO SCH (21:09)
[2023-07-27] MEDS: HYDROmorphone 1 MG/ML 1 ML SYRINGE IVP PRN (21:48)
[2023-07-28] MEDS: HYDROmorphone 1 MG/ML 1 ML SYRINGE IVP PRN ×2 (01:59→12:33)
[2023-07-28] MEDS: ONDANSETRON 4 MG/2 ML VIAL IVP PRN (06:43)
[2023-07-28] MEDS: PANTOPRAZOLE 40 MG/10 ML VIAL IV SCH (08:53)
[2023-07-28] MEDS: ATORVASTATIN 10 MG TAB PO SCH (08:58)
--- NOTE | 2023-07-28 09:25 | P.PAINCN ---
History of Present Illness - Reason for Consult Consult date: 07/28/23 - History of Present Illness This is 78 years old female with history of chronic pain secondary to malignancy, diagnosed with lung mass and she had left upper lobe lung cancer and right upper lobe lung cancer, she has been on chronic pain medication Duragesic patch 50 mcg every 72 hours which is increased recently to 75 mcg (she just have 25 mcg added to her 50 mcg she already had ), patient came to [facility] emergency department secondary to severe pain, patient reported that she had difficulty sleeping at night, she had some depressed mood, has some weight loss, also patient was getting [place] 10/325 every 6 hours as needed(GRIPTION given by her oncologist Dr. Holland ), Past Medical History Past Medical History: Cancer, Fibromyalgia, Hyperlipidemia, Hypertension, Thyroid Disorder Additional Past Medical History / Comment(s): spot in pelvis(metastsis) and dr. Shelby castro spot on lung Patient has sciatica pain on left side taking some tylenol for pain 10/18/22, lung CA, hyperthyroidism History of Any Multi-Drug Resistant Organisms: None Reported Past Surgical History: Appendectomy, Cholecystectomy, Hysterectomy, Joint Replacement Additional Past Surgical History / Comment(s): Colonoscopy, bilat. TKR, Lt. shoulder repair Past Anesthesia/Blood Transfusion Reactions: No Reported Reaction Additional Past Anesthesia/Blood Transfusion Reaction / Comm: Pain in chest after sedation - from the morphine(allergy). No blood transfusion Past Psychological History: No Psychological Hx Reported Smoking Status: Former smoker Past Alcohol Use History: None Reported Past Drug Use History: None Reported - Past Family History Mother Family Medical History: Cancer Additional Family Medical History / Comment(s): multiple myeloma Sister(s) Family Medical History: Cancer Additional Family Medical History / Comment(s): multiple myeloma Brother(s) Family Medical History: Cancer Additional Family Medical History / Comment(s): lung cancer Medications and Allergies Home Medications Medication Instructions Recorded Confirmed Type Atorvastatin [Lipitor] 10 mg PO DAILY 09/29/22 07/27/23 History Lisinopril-Hctz 20-25 mg 1 tab PO DAILY 09/29/22 07/27/23 History [Zestoretic 20-25] Cyclobenzaprine [Flexeril] 5 mg PO TID PRN 07/27/23 07/27/23 History HYDROcodone/APAP 10-325MG [[place] 1 tab PO Q6HR PRN 07/27/23 07/27/23 History 10-325] Ondansetron Odt [Zofran Odt] 8 mg PO Q8HR PRN 07/27/23 07/27/23 History Sotorasib [Lumakras] 360 mg PO BID 07/27/23 07/27/23 History fentaNYL 25MCG/HR PATCH [Duragesic 25 mcg TRANSDERM Q72H 07/27/23 07/27/23 H istory 25MCG/HR] fentaNYL 50MCG/HR PATCH [Duragesic 50 mcg TRANSDERM Q72H 07/27/23 07/27/23 H istory 50MCG/HR] Allergies Allergy/AdvReac Type Severity Reaction Status Date / Time codeine Allergy chest pain Verified 07/27/23 18:30 & EMERALD lidocaine Allergy chest pain Verified 07/27/23 18:30 & EMERALD morphine Allergy chest pain Verified 07/27/23 18:30 & EMERALD Physical Exam Vitals: Vital Signs Temp Pulse Resp BP Pulse Ox 07/28/23 07:08 98.3 F 108 H 14 117/74 94 L 07/28/23 04:39 98.5 F 62 16 122/72 96 07/28/23 02:17 98.8 F 60 16 125/76 95 07/27/23 21:00 98.7 F 104 H 16 137/97 95 07/27/23 17:08 107 H 16 157/76 98 Intake and Output 07/27/23 07/28/23 07/28/23 22:59 06:59 14:59 Other: Weight 63.503 kg Physical Examinations : -Constitutiona : Cooperative , not in acute distress . -HEENT : nech : supple , no Lymphadenopathy , normal thyroid size . : eyes : no ptosis , no icterus, no photophobia . - neurologic : Cranial nerve II to XII intact , no focal neurological deffecit . -psychatric : alert , oriented X 3 , appropriate affect , intact judgment and insight . -Lymphatic : no Lymphadenopathy . Results CBC & Chem 7: 07/27/23 17:47 07/27/23 17:47 Labs: Abnormal Lab Results - Last 24 Hours (Table) 07/27/23 07/27/23 Range/Units 17:47 17:47 MCHC 30.8 L (31.0-37.0) g/dL Neutrophils # 7.9 H (1.3-7.7) k/uL Lymphocytes # 0.9 L (1.0-4.8) k/uL Sodium 129 L (137-145) mmol/L Creatinine 0.41 L (0.52-1.04) mg/dL Calcium 7.4 L (8.4-10.2) mg/dL Phosphorus 1.4 L (2.5-4.5) mg/dL Alkaline Phosphatase 210 H (38-126) U/L Total Protein 6.2 L (6.3-8.2) g/dL Albumin 3.0 L (3.5-5.0) g/dL Assessment and Plan Plan: Assessment and plan=1-pain secondary to malignancy. 2-chronic pain syndrome. Recommend to continue current medication Duragesic patch 75 mcg every 72 hours (was on 50 mcg which is increased recently to 75 mcg ) Continue Willis 10/325 every 6 hours. Patient could benefit from adjuvant for her pain, sleep, mood, I will start patient on desipramine 10 mg nightly and can be adjusted in the future as tolerated Time with Patient: Less than 30 PQRS Measure Charge Sheet PQRS Narrative: Blood Pressure 117/74 Pain Intensity 5 Pain Scale Used Numeric (1 - 10) Scale Used Numeric (1 - 10) Home Medications: Ambulatory Orders Atorvastatin [Lipitor] 10 mg PO DAILY 09/29/22 Lisinopril-Hctz 20-25 mg [Zestoretic 20-25] 1 tab PO DAILY 09/29/22 Cyclobenzaprine [Flexeril] 5 mg PO TID PRN 07/27/23 HYDROcodone/APAP 10-325MG [[place] 10-325] 1 tab PO Q6HR PRN 07/27/23 Ondansetron Odt [Zofran Odt] 8 mg PO Q8HR PRN 07/27/23 Sotorasib [Lumakras] 360 mg PO BID 07/27/23 fentaNYL 25MCG/HR PATCH [Duragesic 25MCG/HR] 25 mcg TRANSDERM Q72H 07/27/23 fentaNYL 50MCG/HR PATCH [Duragesic 50MCG/HR] 50 mcg TRANSDERM Q72H 07/27/23
[2023-07-28] MEDS: LISINOPRIL-HCTZ 20-25 MG 1 EACH TAB PO SCH (09:35)
[2023-07-28 10:20] LABS: Basophils # (A) 0.01 X 10*3/uL (0.00-0.10); Basophils % (A) 0.1 %; Eosinophils # (A) 0.02 X 10*3/uL (0.04-0.35); Eosinophils % (A) 0.2 %; HGB 11.4 g/dL (12.0-15.0); Lymphocytes # (A) 0.81 X 10*3/uL (0.90-5.00); Lymphocytes % (A) 7.6 %; MCH 26.6 pg (27.0-32.0); MCHC 31.7 g/dL (32.0-37.0); MCV 83.9 FL (80.0-97.0); Mean Platelet Volume 8.4 FL (9.5-12.2); Monocytes # (A) 1.15 X 10*3/uL (0.20-1.00); Monocytes % (A) 10.8 %; NRBC Per 100 WBC 0 X 10*3/uL (0.00-0.01); Neutrophils # (A) 8.62 X 10*3/uL (1.80-7.70); Neutrophils % (A) 80.6 %; Platelet Count 224 X 10*3/uL (140-440); RBC 4.29 X 10*6/uL (4.10-5.20); RDW 14.6 % (11.5-14.5); WBC 10.68 X 10*3/uL (4.50-10.00)
[2023-07-28] MEDS ORDERED: HYDROcodone/APAP 10-325MG 1 EACH TAB PO PRN (10:33)
[2023-07-28 11:08] LABS: ALT 10 U/L (8-44); AST 31 U/L (13-35); Albumin 3.2 g/dL (3.8-4.9); Alkaline Phosphatase 201 U/L (41-126); Blood Urea Nitrogen 6.8 mg/dL (9.0-27.0); Calcium 7.6 mg/dL (8.7-10.3); Carbon Dioxide 22.6 mmol/L (21.6-31.8); Chloride 95 mmol/L (96-109); Globulin 2.9 g/dL (1.6-3.3); Glucose 110 mg/dL (70-110); Phosphorus 1.3 mg/dL (2.4-5.1); Potassium 3.9 mmol/L (3.5-5.5); Sodium 130 mmol/L (135-145); Total Bilirubin 0.6 mg/dL (0.3-1.2); Total Protein 6.1 g/dL (6.2-8.2)
[2023-07-28] MEDS: NAPROXEN 250 MG TAB PO SCH (13:01)
[2023-07-28] MEDS: ENOXAPARIN 40 MG/0.4 ML SYRINGE SQ SCH (13:02)
--- NOTE | 2023-07-28 13:17 | P.CNPUL ---
History of Present Illness Consult date: 07/28/23 Requesting physician: Hamilton Stokes Reason for consult: chest pain Chief complaint: Hip, left chest pain History of present illness: This is a very pleasant 78-year-old female patient with a known history of hyperlipidemia, hypertension, hypothyroidism former smoker and recently found to have metastatic pulmonary adenocarcinoma to the bone. She also had malignant pleural effusions and had received a left Pleurx catheter on 06/02/[address] PET scan from 07/20/2023 revealed progression of disease with increased size with mildly diminished FDG activity in the left apical lung mass. There is increased soft tissue surrounding the pleura with increased metabolic activity. Additionally there is increasing FDG activity in numerous osseous metastatic lesions. She presented here to the emergency room last evening with complaints of severe pain with initiating in her left hip and traveling up into her left chest. She is seen today in the emergency department. She is cur rently resting on the stretcher. Awake and alert in mild discomfort. He has received a fentanyl patch, [place], Dilaudid for pain control. She has normal saline at KVO. She is on Lovenox for DVT prophylaxis. Count 10.6. Hemoglobin 11.4. Platelets 224. Sodium 130. Potassium 3.9. Bicarb 26. BUN 7. Creatinine 0.4. Calcium 7.6. Alk phos 201. She is maintaining good O2 saturations in the upper 90s on room air. She is afebrile. Hemodynamically stable. Review of Systems REVIEW OF SYSTEMS: CONSTITUTIONAL: Denies any recent significant weight loss or weight gain. EYES: Denies change in vision. EARS, NOSE, MOUTH, THROAT: Denies headaches, denies sore throat. CARDIOVASCULAR: Denies chest pain, palpitations or syncopal episodes. RESPIRATORY: Denies shortness of breath, cough, congestion or hemoptysis. GASTROINTESTINAL: Denies change in appetite, denies abdominal pain GENITOURINARY: Denies hematuria, denies infections. MUSKULOSKELETAL: Positive for left hip pain, left-sided chest pain, denies swelling. INTEGUMENTARY: Denies rash, denies eczema. NEUROLOGICAL: Denies recent memory loss, no recent seizure activity. PSYCHIATRIC: Denies anxiety, denies depression. HEMATOLOGIC/LYMPHATIC: Denies anemia, denies enlarged lymph nodes. Past Medical History Past Medical History: Cancer, Fibromyalgia, Hyperlipidemia, Hypertension, Thyroid Disorder Additional Past Medical History / Comment(s): spot in pelvis(metastsis) and dr. Ryan saw spot on lung Patient has sciatica pain on left side taking some tylenol for pain 10/18/22, lung CA, hyperthyroidism History of Any Multi-Drug Resistant Organisms: None Reported Past Surgical History: Appendectomy, Cholecystectomy, Hysterectomy, Joint Replacement Additional Past Surgical History / Comment(s): Colonoscopy, bilat. TKR, Lt. shoulder repair Past Anesthesia/Blood Transfusion Reactions: No Reported Reaction Additional Past Anesthesia/Blood Transfusion Reaction / Comment(s): Pain in chest after sedation - from the morphine(allergy). No blood transfusion Past Psychological History: No Psychological Hx Reported Smoking Status: Former smoker Past Alcohol Use History: None Reported Past Drug Use History: None Reported - Past Family History Mother Family Medical History: Cancer Additional Family Medical History / Comment(s): multiple myeloma Sister(s) Family Medical History: Cancer Additional Family Medical History / Comment(s): multiple myeloma Brother(s) Family Medical History: Cancer Additional Family Medical History / Comment(s): lung cancer Medications and Allergies Home Medications Medication Instructions Recorded Confirmed Type Atorvastatin [Lipitor] 10 mg PO DAILY 09/29/22 07/27/23 History Lisinopril-Hctz 20-25 mg 1 tab PO DAILY 09/29/22 07/27/23 History [Zestoretic 20-25] Cyclobenzaprine [Flexeril] 5 mg PO TID PRN 07/27/23 07/27/23 History HYDROcodone/APAP 10-325MG [[place] 1 tab PO Q6HR PRN 07/27/23 07/27/23 History 10-325] Ondansetron Odt [Zofran Odt] 8 mg PO Q8HR PRN 07/27/23 07/27/23 History Sotorasib [Lumakras] 360 mg PO BID 07/27/23 07/27/23 History fentaNYL 25MCG/HR PATCH [Duragesic 25 mcg TRANSDERM Q72H 07/27/23 07/27/23 History 25MCG/HR] fentaNYL 50MCG/HR PATCH [Duragesic 50 mcg TRANSDERM Q72H 07/27/23 07/27/23 History 50MCG/HR] Desipramine [Norpramin] 25 mg PO HS #30 tablet 07/28/23 Rx Allergies Allergy/AdvReac Type Severity Reaction Status Date / Time codeine Allergy chest pain Verified 07/27/23 18:30 & EMERALD lidocaine Allergy chest pain Verified 07/27/23 18:30 & EMERALD morphine Allergy chest pain Verified 07/27/23 18:30 & EMERALD Physical Exam Vitals: Vital Signs Temp Pulse Resp BP Pulse Ox 07/28/23 11:34 98 F 107 H 18 104/64 98 07/28/23 07:08 98.3 F 108 H 14 117/74 94 L 07/28/23 04:39 98.5 F 62 16 122/72 96 07/28/23 02:17 98.8 F 60 16 125/76 95 07/27/23 21:00 98.7 F 104 H 16 137/97 95 07/27/23 17:08 107 H 16 157/76 98 Intake and Output 07/27/23 07/28/23 07/28/23 22:59 06:59 14:59 Other: Weight 63.503 kg GENERAL EXAM: Alert, very pleasant 78-year-old female, on room air, fairly comf ortable in no apparent distress. HEAD: Normocephalic. EYES: Normal reaction of pupils, equal size. NOSE: Clear with pink turbinates. THROAT: No erythema or exudates. NECK: No masses, no JVD. CHEST: No chest wall deformity. Left-sided Pleurx catheter in place. LUNGS: Equal air entry with crackles, diminished in the left lung. CVS: S1 and S2 normal with no audible murmur, regular rhythm. ABDOMEN: No hepatosplenomegaly, normal bowel sounds, no guarding or rigidity. SPINE: No scoliosis or deformity SKIN: No rashes CENTRAL NERVOUS SYSTEM: No focal deficits, tone is normal in all 4 extremities. EXTREMITIES: There is no peripheral edema. No clubbing, no cyanosis. Peripheral pulses are intact. Results - Laboratory Findings CBC and BMP: 07/28/23 07:10 07/28/23 07:10 Abnormal lab findings: Abnormal Labs 07/27/23 07/27/23 07/28/23 17:47 17:47 07:10 WBC 10.68 H Hgb 11.4 L Hct 36.0 L MCH 26.6 L MCHC 30.8 L 31.7 L RDW 14.6 H MPV 8.4 L Immature Gran # 0.07 H Neutrophils # 7.9 H 8.62 H Lymphocytes # 0.9 L 0.81 L Monocytes # 1.15 H Eosinophils # 0.02 L Sodium 129 L Chloride Anion Gap BUN Creatinine 0.41 L Calcium 7.4 L Phosphorus 1.4 L Alkaline Phosphatase 210 H Total Protein 6.2 L Albumin 3.0 L Albumin/Globulin Ratio 07/28/23 07:10 WBC Hgb Hct MCH MCHC RDW MPV Immature Gran # Neutrophils # Lymphocytes # Monocytes # Eosinophils # Sodium 130 L Chloride 95 L Anion Gap 12.40 H BUN 6.8 L Creatinine 0.4 L Calcium 7.6 L Phosphorus 1.3 L Alkaline Phosphatase 201 H Total Protein 6.1 L Albumin 3.2 L Albumin/Globulin Ratio 1.10 L Assessment and Plan Assessment: Intractable bone pain secondary to metastatic pulmonary adenocarcinoma. PET scan from 07/20/2023 reveals osseous lesions with increasing SUV involving the right iliac bone, iliac crest, left posterior iliac bone, sacrum, L5, L4, T10. Left metastatic pleural effusion post thoracentesis on May 19, 2023, recurrent and status post Pleurx catheter placement on 06/02/2023 Left apical lung mass positive for pulmonary adenocarcinoma diagnosed in October 2022 Chronic pain syndrome secondary to above Former smoker Hypertension Hyperlipidemia Plan: The patient was seen and evaluated Labs and medications reviewed Pain management consult Medical oncology consult Currently stable and on room air Obtain a chest x-ray Left Pleurx catheter in place We will continue to follow and make further recommendations based on her clinical status I have personally seen and examined the patient, performed the documentation and the assessment and plan as written. Number of minutes spent on the visit: 20.
[2023-07-28] MEDS: HYDROcodone/APAP 10-325MG 1 EACH TAB PO PRN (14:01)
--- NOTE | 2023-07-28 14:58 | XR ---
EXAMINATION TYPE: XR chest 1V portable DATE OF EXAM: 07/28/2023 HISTORY: Shortness of breath. COMPARISON: 06/02/2023 TECHNIQUE: Single view of the chest is submitted. FINDINGS: Demonstrated are scattered senescent parenchymal change. Left basilar pleural catheter is noted to be in place. Resolution previously noted pneumothorax. Incr easing opacity left lower lobe which may be a combination of effusion, atelectasis and/or infiltrate. Nodular density periphery of the right upper lobe. The heart is stable. Hilar and mediastinal structures are within normal limits. Degenerative changes are seen of the dorsal spine. IMPRESSION: 1. Left basilar pleural catheter is noted to be in place. Resolution previously noted pneumothorax. Increasing opacity left lower lobe which may be a combination of effusion, atelectasis and/or infiltr ate. Nodular density periphery of the right upper lobe.
--- NOTE | 2023-07-28 15:20 | P.CONS ---
History of Present Illness - Reason for Consult Consult date: 07/28/23 Metastatic lung cancer - Chief Complaint Left hip pain - History of Present Illness Ms. Srinivasan is a 68-year-old woman with a past medical history significant for metastatic adenocarcinoma of the lung currently on sotorasib who presents with increased left hip pain. She notes this has gotten progressively worse over the past week despite interventions such as fentanyl patch and [place]. She had p rogressive increase in fentanyl patch up to 75 mcg/h in addition to [place] 10/325 every 6 hours as needed. When this was not controlling her pain, she was advised to present to the ED for further evaluation. In addition, she has been having increased nausea during this time in addition to nausea from sotorasib. PET/CT on 07/20/2023 appeared to show increased size in the left upper lobe mass in addition to increased FDG uptake in the right and left iliac crest, and L5/L4/T10 vertebral bodies. In the ED, she was slightly tachycardic with heart rates from 104-108. CBC noted WBC 9.8 (ANC 7.9), hemoglobin 11.6, platelets 263. CMP revealed sodium of 129 with phosphorus of 1.4. She received 500 cc bolus of normal saline in addition to a total of 6 mg of Dilaudid IV and 8 mg of IV Zofran. She was admitted for further management. Since admission, she notes her pain is improved, but is still requiring IV pain medication. Review of Systems 14 point review of systems was conducted with pertinent positives and negatives as noted per HPI Past Medical History Past Medical History: Cancer, Fibromyalgia, Hyperlipidemia, Hypertension, Thyroid Disorder Additional Past Medical History / Comment(s): spot in pelvis(metastsis) and dr. Ryan saw spot on lung Patient has sciatica pain on left side taking some tylenol for pain 10/18/22, lung CA, hyperthyroidism History of Any Multi-Drug Resistant Organisms: None Reported Past Surgical History: Appendectomy, Cholecystectomy, Hysterectomy, Joint Replacement Additional Past Surgical History / Comment(s): Colonoscopy, bilat. TKR, Lt. shoulder repair Past Anesthesia/Blood Transfusion Reactions: No Reported Reaction Additional Past Anesthesia/Blood Transfusion Reaction / Comm: Pain in chest after sedation - from the morphine(allergy). No blood transfusion Past Psychological History: No Psychological Hx Reported Smoking Status: Former smoker Past Alcohol Use History: None Reported Past Drug Use History: None Reported - Past Family History Mother Family Medical History: Cancer Additional Family Medical History / Comment(s): multiple myeloma Sister(s) Family Medical History: Cancer Additional Family Medical History / Comment(s): multiple myeloma Brother(s) Family Medical History: Cancer Additional Family Medical History / Comment(s): lung cancer Medications and Allergies Home Medications Medication Instructions Recorded Confirmed Type Atorvastatin [Lipitor] 10 mg PO DAILY 09/29/22 07/27/23 History Lisinopril-Hctz 20-25 mg 1 tab PO DAILY 09/29/22 07/27/23 History [Zestoretic 20-25] Cyclobenzaprine [Flexeril] 5 mg PO TID PRN 07/27/23 07/27/23 History HYDROcodone/APAP 10-325MG [[place] 1 tab PO Q6HR PRN 07/27/23 07/27/23 History 10-325] Ondansetron Odt [Zofran Odt] 8 mg PO Q8HR PRN 07/27/23 07/27/23 History Sotorasib [Lumakras] 360 mg PO BID 07/27/23 07/27/23 History fentaNYL 25MCG/HR PATCH [Duragesic 25 mcg TRANSDERM Q72H 07/27/23 07/27/23 H istory 25MCG/HR] fentaNYL 50MCG/HR PATCH [[place]ages[place] 50 mcg TRANSDERM Q72H 07/27/23 07/27/23 H istory 50MCG/HR] Desipramine [Norpramin] 25 mg PO HS #30 tablet 07/28/23 Rx Allergies Allergy/AdvReac Type Severity Reaction Status Date / Time codeine Allergy chest pain Verified 07/27/23 18:30 & EMERALD lidocaine Allergy chest pain Verified 07/27/23 18:30 & EMERALD morphine Allergy chest pain Verified 07/27/23 18:30 & EMERALD Physical Exam Vitals: Vital Signs Temp Pulse Resp BP Pulse Ox 07/28/23 11:34 98 F 107 H 18 104/64 98 07/28/23 07:08 98.3 F 108 H 14 117/74 94 L 07/28/23 04:39 98.5 F 62 16 122/72 96 07/28/23 02:17 98.8 F 60 16 125/76 95 07/27/23 21:00 98.7 F 104 H 16 137/97 95 07/27/23 17:08 107 H 16 157/76 98 - Constitutional General appearance: cooperative, mild distress - EENT Eyes: EOMI - Respiratory Respiratory: bilateral: other (Bibasilar inspiratory crackles) - Cardiovascular Tachycardic Rhythm: regular - Gastrointestinal General gastrointestinal: no distended, soft, no tenderness - Neurologic Neurologic: CNII-XII intact Results CBC & Chem 7: 07/28/23 07:10 07/28/23 07:10 Labs: Abnormal Lab Results - Last 24 Hours (Table) 07/27/23 07/27/23 07/28/23 Range/Units 17:47 17:47 07:10 WBC 10.68 H (4.50-10.00) X 10*3/uL Hgb 11.4 L (12.0-15.0) g/dL Hct 36.0 L (37.2-46.3) % MCH 26.6 L (27.0-32.0) pg MCHC 30.8 L 31.7 L (31.0-37.0) g/dL RDW 14.6 H (11.5-14.5) % MPV 8.4 L (9.5-12.2) FL Immature Gran # 0.07 H (0.00-0.04) X 10*3/uL Neutrophils # 7.9 H 8.62 H (1.3-7.7) k/uL Lymphocytes # 0.9 L 0.81 L (1.0-4.8) k/uL Monocytes # 1.15 H (0.20-1.00) X 10*3/uL Eosinophils # 0.02 L (0.04-0.35) X 10*3/uL Sodium 129 L (137-145) mmol/L Chloride (96-109) mmol/L Anion Gap (4.00-12.00) mmol/L BUN (9.0-27.0) mg/dL Creatinine 0.41 L (0.52-1.04) mg/dL Calcium 7.4 L (8.4-10.2) mg/dL Phosphorus 1.4 L (2.5-4.5) mg/dL Alkaline Phosphatase 210 H (38-126) U/L Total Protein 6.2 L (6.3-8.2) g/dL Albumin 3.0 L (3.5-5.0) g/dL Albumin/Globulin Ratio (1.60-3.17) Ratio 07/28/23 Range/Units 07:10 WBC (4.50-10.00) X 10*3/uL Hgb (12.0-15.0) g/dL Hct (37.2-46.3) % MCH (27.0-32.0) pg MCHC (31.0-37.0) g/dL RDW (11.5-14.5) % MPV (9.5-12.2) FL Immature Gran # (0.00-0.04) X 10*3/uL Neutrophils # (1.3-7.7) k/uL Lymphocytes # (1.0-4.8) k/uL Monocytes # (0.20-1.00) X 10*3/uL Eosinophils # (0.04-0.35) X 10*3/uL Sodium 130 L (137-145) mmol/L Chloride 95 L (96-109) mmol/L Anion Gap 12.40 H (4.00-12.00) mmol/L BUN 6.8 L (9.0-27.0) mg/dL Creatinine 0.4 L (0.52-1.04) mg/dL Calcium 7.6 L (8.4-10.2) mg/dL Phosphorus 1.3 L (2.5-4.5) mg/dL Alkaline Phosphatase 201 H (38-126) U/L Total Protein 6.1 L (6.3-8.2) g/dL Albumin 3.2 L (3.5-5.0) g/dL Albumin/Globulin Ratio 1.10 L (1.60-3.17) Ratio Assessment and Plan (1) Non-small cell lung cancer metastatic to bone Current Visit: Yes Status: Acute Code(s): C34.90 - MALIGNANT NEOPLASM OF UNSP PART OF UNSP BRONCHUS OR LUNG; C79.51 - SECONDARY MALIGNANT NEOPLASM OF BONE SNOMED Code(s): 093974486 (2) Cancer associated pain Current Visit: Yes Status: Acute Code(s): G89.3 - NEOPLASM RELATED PAIN (ACUTE) (CHRONIC) SNOMED Code(s): 23322210304306 Plan: #Left hip pain secondary to bone metastases -Progressively increasing pain prior to admission at the posterior left hip -PET/CT on 07/20/2023 noted increased FDG uptake in the left iliac crest consistent with disease progression -On fentanyl 75 mcg transdermal patch and [place] 10/325 every 6 hours prior to admission -Continue fentanyl at 75 mcg and increase [place] frequency to 10/325 every 4 hours as needed -As she continues to have acute pain, continue Dilaudid 1 mg IV every 3 hours -We discussed assessing her needs with IV pain medications over a 24-hour period so that this could be converted to oral or transdermal patch -She could benefit from palliative radiation therapy to the left hip -If pain is not controlled on medications, radiation oncology consultation for palliative radiation will be beneficial #Metastatic non-small cell lung cancer -Currently on sotorasib (KRAS G12C inhibitor) and xgeva for bone metastases with persistent nausea and decreased appetite -PET/CT on 07/20/2023 noted evidence of disease progression at known sites of disease with no new lesions -We discussed that her nausea is likely multifactorial due to sotorasib as well as acute pain -Recommend holding sotorasib at this time until pain is better controlled -She does have follow-up on 08/01/2023 with her primary oncologist Dr. Raj De La Rosa MD
--- NOTE | 2023-07-28 16:20 | P.HPIM ---
History of Present Illness H&P Date: 07/28/23 Chief Complaint: Increase pain This is a very pleasant 78-year-old patient, follows with PCP Bettye Hi. Also oncologist Dr. De La Rosa. Patient has known metastatic adenocarcinoma of the lung. She is onSotorasib. Patient is been having progressive increased pain in the left chest wall/ribs and the left hip. She is on Duragesic patch 75 at home and [place]. Not controlled. Pain service/anesthesia was consulted from the ER. She has had significant nausea. Decreased appetite. Patient is accompanied by her . Cancer diagnosed in September 2022. Has had weight loss. Patient is ambulatory, unassisted Review of systems: GEN.: Tired decreased appetite weight loss EYES: None HEENT: None NECK: None RESPIRATORY: None CARDIOVASCULAR: None GASTROINTESTINAL: Positive patient decreased oral intake GENITOURINARY: None MUSCULOSKELETAL: As above LYMPHATICS: None HEMATOLOGICAL: None PSYCHIATRY: Anxious NEUROLOGICAL: None Social history: Patient smoked a pack a day for 40 years stopped in 2012. . Physical examination: VITAL SIGNS: 98.3, 108, 16, 117/74, 94% room air GENERAL: BMI 23.3, reclining bed awake slightly anxious. EYES: Pupils equal. Conjunctiva tino l. HEENT: External appearance of nose and ears normal, oral cavity grossly normal. NECK: JVD not raised; masses not palpable. HEART: First and second heart sounds are normal; no edema. LUNGS: Respiratory rate normal; decreased breath sounds. ABDOMEN: Soft, nontender, liver spleen not palpable, no masses palpable. PSYCH: Alert and oriented x3; mood and affect anxious a l. MUSCULOSKELETAL:No Clubbing/cyanosis;muscles-grossly intact. Some pain about the left rib cage and left hip. OA NEUROLOGICAL: Cranial nerves grossly intact; no facial asymmetry, power and sensation grossly intact. LYMPHATICS: No lymph nodes palpable in the axilla and neck INVESTIGATIONS, reviewed in the clinical context: July 28, 2023: White count 10.6 hemoglobin 11.4 platelets 224 sodium 130 potassium 3.9 BUN 6.8 creatinine 0.4 calcium 7.6 phosphorus 1.3 albumin 3.2 Os- Momo Chest x-ray film: Left basal pleural catheter. Increasing opacity left lower lobe. Assessment plan: -Uncontrolled metastatic bone pain in the left left greater than left hip. Duragesic patch 75 mcg an hour, [place] 10 every 4 as needed outpatient. Pain service is consulted. Desipramine 25 mg added at night. Given bone pain will start the patient on naproxen to 50 mg 3 times daily. IV Dilaudid as needed -Severe constipation with decreased oral intake and narcotics Add Metamucil -Acute on chronic medical debility due to underlying malignancy -Anorexia secondary to underlying malignancy Start Marinol 5 mg twice daily -metastatic adenocarcinoma of the lung. She is onSotorasib. Follows with oncologist Dr. De La Rosa -Hyperlipidemia Lipitor 10 mg a day -Hypophosphatemia Neutra-Phos supplement -Protein calorie malnutrition from decreased oral intake Ensure -Hypocalcemia, after correction for hypoalbuminemia Start Os-Momo with vitamin D -Essential hypertension Zestoretic -DNR Care was discussed with the patient and at the bedside. Given patient's severe pain, poor medical debility for appetite, patient will need at least 2 nights inpatient stay. Consultation to oncology and pain management service. Past Medical History Past Medical History: Cancer, Fibromyalgia, Hyperlipidemia, Hypertension, Thyroid Disorder Additional Past Medical History / Comment(s): spot in pelvis(metastsis) and dr. Ryan saw spot on lung Patient has sciatica pain on left side taking some tylenol for pain 10/18/22, lung CA, hyperthyroidism History of Any Multi-Drug Resistant Organisms: None Reported Past Surgical History: Appendectomy, Cholecystectomy, Hysterectomy, Joint Replacement Additional Past Surgical History / Comment(s): Colonoscopy, bilat. TKR, Lt. shoulder repair Past Anesthesia/Blood Transfusion Reactions: No Reported Reaction Additional Past Anesthesia/Blood Transfusion Reaction / Comment(s): Pain in chest after sedation - from the morphine(allergy). No blood transfusion Past Psychological History: No Psychological Hx Reported Smoking Status: Former smoker Past Alcohol Use History: None Reported Past Drug Use History: None Reported - Past Family History Mother Family Medical History: Cancer Additional Family Medical History / Comment(s): multiple myeloma Sister(s) Family Medical History: Cancer Additional Family Medical History / Comment(s): multiple myeloma Brother(s) Family Medical History: Cancer Additional Family Medical History / Comment(s): lung cancer Medications and Allergies Home Medications Medication Instructions Recorded Confirmed Type Atorvastatin [Lipitor] 10 mg PO DAILY 09/29/22 07/27/23 History Lisinopril-Hctz 20-25 mg 1 tab PO DAILY 09/29/22 07/27/23 History [Zestoretic 20-25] Cyclobenzaprine [Flexeril] 5 mg PO TID PRN 07/27/23 07/27/23 History HYDROcodone/APAP 10-325MG [[place] 1 tab PO Q6HR PRN 07/27/23 07/27/23 History 10-325] Ondansetron Odt [Zofran Odt] 8 mg PO Q8HR PRN 07/27/23 07/27/23 History Sotorasib [Lumakras] 360 mg PO BID 07/27/23 07/27/23 History fentaNYL 25MCG/HR PATCH [Duragesic 25 mcg TRANSDERM Q72H 07/27/23 07/27/23 History 25MCG/HR] fentaNYL 50MCG/HR PATCH [Duragesic 50 mcg TRANSDERM Q72H 07/27/23 07/27/23 History 50MCG/HR] Desipramine [Norpramin] 25 mg PO HS #30 tablet 07/28/23 Rx Allergies Allergy/AdvReac Type Severity Reaction Status Date / Time codeine Allergy chest pain Verified 07/27/23 18:30 & EMERALD lidocaine Allergy chest pain Verified 07/27/23 18:30 & EMERALD morphine Allergy chest pain Verified 07/27/23 18:30 & EMERALD Physical Exam Vitals: Vital Signs Temp Pulse Resp BP Pulse Ox 07/28/23 07:08 98.3 F 108 H 14 117/74 94 L 07/28/23 04:39 98.5 F 62 16 122/72 96 07/28/23 02:17 98.8 F 60 16 125/76 95 07/27/23 21:00 98.7 F 104 H 16 137/97 95 07/27/23 17:08 107 H 16 157/76 98 Intake and Output 07/27/23 07/28/23 07/28/23 22:59 06:59 14:59 Other: Weight 63.503 kg Results CBC & Chem 7: 07/28/23 07:10 07/28/23 07:10 Labs: Abnormal Lab Results - Last 24 Hours (Table) 07/27/23 07/27/23 07/28/23 Range/Units 17:47 17:47 07:10 WBC 10.68 H (4.50-10.00) X 10*3/uL Hgb 11.4 L (12.0-15.0) g/dL Hct 36.0 L (37.2-46.3) % MCH 26.6 L (27.0-32.0) pg MCHC 30.8 L 31.7 L (31.0-37.0) g/dL RDW 14.6 H (11.5-14.5) % MPV 8.4 L (9.5-12.2) FL Immature Gran # 0.07 H (0.00-0.04) X 10*3/uL Neutrophils # 7.9 H 8.62 H (1.3-7.7) k/uL Lymphocytes # 0.9 L 0.81 L (1.0-4.8) k/uL Monocytes # 1.15 H (0.20-1.00) X 10*3/uL Eosinophils # 0.02 L (0.04-0.35) X 10*3/uL Sodium 129 L (137-145) mmol/L Creatinine 0.41 L (0.52-1.04) mg/dL Calcium 7.4 L (8.4-10.2) mg/dL Phosphorus 1.4 L (2.5-4.5) mg/dL Alkaline Phosphatase 210 H (38-126) U/L Total Protein 6.2 L (6.3-8.2) g/dL Albumin 3.0 L (3.5-5.0) g/dL
[2023-07-28] MEDS: POTAS-SOD-PHOS 278-164-250 MG 1 EACH PACKET PO SCH (16:44)
[2023-07-28] MEDS: HYDROcodone/APAP 10-325MG 1 EACH TAB PO SCH (17:41)
[2023-07-28] MEDS: CALCIUM CARB-VIT D 500 MG-5 MCG TAB PO SCH (17:42)
[2023-07-28] MEDS: droNABinol 2.5 MG CAP PO SCH (17:43)
[2023-07-28] MEDS: PSYLLIUM HUSK 100% 6 GM PACKET PO SCH (21:13)
[2023-07-28] MEDS: FAMOTIDINE 20 MG TAB PO SCH (21:14)
[2023-07-28] MEDS: DESIPRAMINE 25 MG TAB PO SCH (21:39)
[2023-07-29 13:06] VITALS: BMI 23.3
--- NOTE | 2023-07-29 14:30 | P.PN ---
Subjective Progress Note Date: 07/29/23 This is a very pleasant 78-year-old female patient with a known history of hyperlipidemia, hypertension, hypothyroidism former smoker and recently found to have metastatic pulmonary adenocarcinoma to the bone. She also had malignant pleural effusions and had received a left Pleurx catheter on 06/02/[address] PET scan from 07/20/2023 revealed progression of disease with increased size with mildly diminished FDG activity in the left apical lung mass. There is increased soft tissue surrounding the pleura with increased metabolic activity. Additionally there is increasing FDG activity in numerous osseous metastatic lesions. She presented here to the emergency room last evening with complaints of severe pain with initiating in her left hip and traveling up into her left chest. She is seen today in the emergency department. She is currently resting on the stretcher. Awake and alert in mild discomfort. He has received a fentanyl patch, [place], Dilaudid for pain control. She has normal saline at KVO. She is on Lovenox for DVT prophylaxis. Count 10.6. Hemoglobin 11.4. Platelets 224. Sodium 130. Potassium 3.9. Bicarb 26. BUN 7. Creatinine 0.4. Calcium 7.6. Alk phos 201. She is maintaining good O2 saturations in the upper 90s on room air. She is afebrile. Hemodynamically stable. The patient is seen today July 29, 2023 in follow-up on the regular medical floor. She is currently resting fairly comfortably in bed. Maintaining good O2 saturations in the 90s on room air. She has normal staying at 20 MLS per hour. She is still having some ongoing discomfort in her hips and left chest. She is continued on fentanyl patches, Dilaudid, Naprosyn, Flexeril and [place]. She is being considered for possible palliative radiation to the left hip. She is afeb rile. Hemodynamically stable. Objective - Vital Signs Vital signs: Vital Signs Temp 97.4 F L 07/29/23 13:34 Pulse 109 H 07/29/23 13:34 Resp 20 07/29/23 13:34 BP 92/61 07/29/23 13:34 Pulse Ox 96 07/29/23 13:34 FiO2 Intake & Output 07/28/23 07/29/23 07/29/23 18:59 06:59 18:59 Weight 63.503 kg 63.503 kg - Exam GENERAL EXAM: Alert, 78-year-old female, on room air, fairly comfortable in no apparent distress. HEAD: Normocephalic. EYES: Normal reaction of pupils, equal size. NOSE: Clear with pink turbinates. THROAT: No erythema or exudates. NECK: No masses, no JVD. CHEST: No chest wall deformity. Left-sided Pleurx catheter in place. LUNGS: Equal air entry with crackles, diminished in the left lung. CVS: S1 and S2 normal with no audible murmur, regular rhythm. ABDOMEN: No hepatosplenomegaly, normal bowel sounds, no guarding or rigidity. SPINE: No scoliosis or deformity SKIN: No rashes CENTRAL NERVOUS SYSTEM: No focal deficits, tone is normal in all 4 extremities. EXTREMITIES: There is no peripheral edema. No clubbing, no cyanosis. Peripheral pulses are intact. - Labs CBC & Chem 7: 07/28/23 07:10 07/28/23 07:10 Assessment and Plan Assessment: Intractable bone pain secondary to metastatic pulmonary adenocarcinoma. Receiving sotorasib and Xgeva. PET scan from 07/20/2023 reveals osseous lesions with increasing SUV involving the right iliac bone, iliac crest, left posterior iliac bone, sacrum, L5, L4, T10. Left metastatic pleural effusion post thoracentesis on May 19, 2023, recurrent and status post Pleurx catheter placement on 06/02/2023 Left apical lung mass positive for pulmonary adenocarcinoma diagnosed in October 2022 Chronic pain syndrome secondary to above Former smoker Hypertension Hyperlipidemia Plan: The patient was seen and evaluated Chest x-ray and medications reviewed Continue with pain management May benefit from palliative radiation to the left hip We will continue to follow I have personally seen and examined the patient, performed the documentation and the assessment and plan as written. Number of minutes spent on the visit: 10.
--- NOTE | 2023-07-29 15:16 | P.PN ---
Subjective Progress Note Date: 07/29/23 Principal diagnosis: Metastatic NSCLC -Afebrile, no acute events overnight -Appears more comfortable on today's encounter -Noted diffuse sick milligrams of IV Dilaudid over the past 24 hours, but halves and receiving this whenever she been requesting medication for pain -Daughter at bedside notes mild confusion with disorientation (Brittany thinking she is in [place]) Objective - Vital Signs Vital signs: Vital Signs Temp 97.4 F L 07/29/23 13:34 Pulse 109 H 07/29/23 13:34 Resp 20 07/29/23 13:34 BP 92/61 07/29/23 13:34 Pulse Ox 96 07/29/23 13:34 FiO2 Intake & Output 07/28/23 07/29/23 07/29/23 18:59 06:59 18:59 Weight 63.503 kg 63.503 kg - Constitutional General appearance: Present: cooperative, no acute distress - EENT Eyes: Present: EOMI - Respiratory Respiratory: left: other (Inspiratory crackles left lung base) - Cardiovascular Details: Warm and well-perfused - Gastrointestinal General gastrointestinal: Present: normal bowel sounds, soft. Absent: distended - Neurologic Neurologic: Present: CNII-XII intact. Absent: focal deficits - Labs CBC & Chem 7: 07/28/23 07:10 07/28/23 07:10 Assessment and Plan (1) Non-small cell lung cancer metastatic to bone Current Visit: Yes Status: Acute Code(s): C34.90 - MALIGNANT NEOPLASM OF UNSP PART OF UNSP BRONCHUS OR LUNG; C79.51 - SECONDARY MALIGNANT NEOPLASM OF BONE SNOMED Code(s): 299136835 (2) Cancer associated pain Current Visit: Yes Status: Acute Code(s): G89.3 - NEOPLASM RELATED PAIN (ACUTE) (CHRONIC) SNOMED Code(s): 96839153886619 Plan: #Left hip pain secondary to bone metastases -Progressively increasing pain prior to admission at the posterior left hip -PET/CT on 07/20/2023 noted increased FDG uptake in the left iliac crest c onsistent with disease progression -On fentanyl 75 mcg transdermal patch and [place] 10/325 every 6 hours prior to admission -Dilaudid 1 mg IV every 3 hours was used 6 times in addition to [place] 10/325 -Pain appears to be better controlled, but is having some mild confusion per daughter at bedside -I did change Dilaudid instructions to be used as breakthrough only if [place] is not helping to help truly determine her pain medication requirements -Continue transdermal fentanyl 75 mcg/hr along with [place] 10/325 every 4 hours as needed -If pain is not controlled on medications, radiation oncology consultation for palliative radiation will be beneficial #Metastatic non-small cell lung cancer -Currently on sotorasib (KRAS G12C inhibitor) and xgeva for bone metastases with persistent nausea and decreased appetite -PET/CT on 07/20/2023 noted evidence of disease progression at known sites of disease with no new lesions -We discussed that her nausea is likely multifactorial due to sotorasib as well as acute pain -Recommend holding sotorasib at this time until pain is better controlled -She does have follow-up on 08/01/2023 with her primary oncologist Dr. Raj De La Rosa MD
--- NOTE | 2023-07-29 16:55 | P.PN ---
Progress Note - Text Progress Note Date: 07/29/23 Chief Complaint: Increase pain This is a very pleasant 78-year-old patient, follows with PCP Bettye Hi. Also oncologist Dr. De La Rosa. Patient has known metastatic adenocarcinoma of the lung. She is onSotorasib. Patient is been having progressive increased pain in the left chest wall/ribs and the left hip. She is on Duragesic patch 75 at home and [place]. Not controlled. Pain service/anesthesia was consulted from the ER. She has had significant nausea. Decreased appetite. Patient is accompanied by her . Cancer diagnosed in September 2022. Has had weight loss. Patient is ambulatory, unassisted July 28: Some improvement in pain. Patient on fentanyl patch 25. [place] 10. Dilaudid as needed. Also naproxen added for bone pain. Marinol was added for appetite. Did eat small amounts. Family at the bedside. Also also present. Continue current medications currently. Have the patient sit up in a chair. Active Medications Hydrocodone Bitart/Acetaminophen (Hydrocodone/Apap 10-325mg 1 Each Tab) 1 each PO Q4HR [facility] Last Admin: 07/29/23 15:28 Dose: 1 each Atorvastatin Calcium (Atorvastatin 10 Mg Tab) 10 mg PO DAILY [facility] Last Admin: 07/29/23 09:01 Dose: 10 mg Calcium Carbonate (Calcium Carb-Vit D 500 Mg-5 Mcg Tab) 1 each PO BID-W/MEALS [facility] Last Admin: 07/29/23 06:41 Dose: 1 each Cyclobenzaprine HCl (Cyclobenzaprine 5 Mg Tab) 5 mg PO TID PRN PRN Reason: Muscle Spasm Desipramine HCl (Desipramine 25 Mg Tab) 25 mg PO HS [facility] Last Admin: 07/28/23 21:39 Dose: 25 mg Dronabinol (Dronabinol 2.5 Mg Cap) 5 mg PO AC-BID [facility] Last Admin: 07/29/23 06:41 Dose: 5 mg Enoxaparin Sodium (Enoxaparin 40 Mg/0.4 Ml Syringe) 40 mg SQ DAILY [facility] Last Admin: 07/29/23 09:01 Dose: 40 mg Famotidine (Famotidine 20 Mg Tab) 20 mg PO BID [facility] Last Admin: 07/29/23 09:01 Dose: 20 mg Fentanyl (Fentanyl 75mcg/Hr Patch) 1 patch TRANSDERM Q72H [facility]; Protocol Last Admin: 07/28/23 09:36 Dose: 1 patch Lisinopril/HCTZ (Lisinopril-Hctz 20-25 Mg 1 Each Tab) 1 each PO DAILY [facility] Last Admin: 07/29/23 09:04 Dose: Not Given Hydromorphone HCl (Hydromorphone 1 Mg/Ml 1 Ml Syringe) 1 mg IVP Q3HR PRN PRN Reason: Pain Last Admin: 07/29/23 08:13 Dose: 1 mg Sodium Chloride (Saline 0.9%) 1,000 mls @ 20 mls/hr IV .Q24H [facility] Last Admin: 07/28/23 17:42 Dose: 20 mls/hr Naloxone HCl (Naloxone 0.4 Mg/Ml 1 Ml Vial) 0.2 mg IV Q2M PRN PRN Reason: Opioid Reversal Naproxen (Naproxen 250 Mg Tab) 250 mg PO TID [facility] Last Admin: 07/29/23 14:44 Dose: 250 mg Sotorasib [Lumakras] (120 Mg Tablet) 360 mg PO BID [facility] Last Admin: 07/29/23 07:34 Dose: Not Given Ondansetron HCl (Ondansetron 4 Mg/2 Ml Vial) 4 mg IVP Q8HR PRN PRN Reason: Nausea And Vomiting Last Admin: 07/29/23 09:01 Dose: 4 mg Potassium Phos/Sodium Phos (Popzf-Bcf-Flfb 278-164-250 Mg 1 Each Packet) 1 each PO TID [facility] Last Admin: 07/29/23 16:01 Dose: Not Given Psyllium Hydrophilic Mucilloid (Psyllium Husk 100% 6 Gm Packet) 6 gm PO BID [facility] Last Admin: 07/29/23 09:01 Dose: 6 gm Social history: Patient smoked a pack a day for 40 years stopped in 2012. . Physical examination: VITAL SIGNS: 97.4, 109, 20, 92 x 61, 96% room air GENERAL: Lying in bed, tired EYES: Pupils equal. Conjunctiva tino l. HEENT: External appearance of nose and ears normal, oral cavity grossly normal. NECK: JVD not raised; masses not palpable. HEART: First and second heart sounds are normal; no edema. LUNGS: Respiratory rate normal; decreased breath sounds. ABDOMEN: Soft, nontender, liver spleen not palpable, no masses palpable. PSYCH: Alert and oriented x3; mood and affect anxious a l. MUSCULOSKELETAL:No Clubbing/cyanosis;muscles-grossly intact. Some pain about the left rib cage and left hip. OA INVESTIGATIONS, reviewed in the clinical context: July 28, 2023: White count 10.6 hemoglobin 11.4 platelets 224 sodium 130 potassium 3.9 BUN 6.8 creatinine 0.4 calcium 7.6 phosphorus 1.3 albumin 3.2 Os- [place] Chest x-ray film: Left basal pleural catheter. Increasing opacity left lower lobe. Assessment plan: -Uncontrolled metastatic bone pain in the left left greater than left hip. Duragesic patch 75 mcg an hour, [place] 10 every 4 t. Pain service is consulted. Desipramine 25 mg added at night. Given bone pain - naproxen 250 mg 3 times daily. IV Dilaudid as needed -Severe constipation with decreased oral intake and narcotics Add Metamucil -Acute on chronic medical debility due to underlying malignancy -Anorexia secondary to underlying malignancy Marinol 5 mg twice daily -metastatic adenocarcinoma of the lung. She is onSotorasib. Follows with oncologist Dr. De La Rosa -Hyperlipidemia Lipitor 10 mg a day -Hypophosphatemia Neutra-Phos supplement -Protein calorie malnutrition from decreased oral intake Ensure -Hypocalcemia, after correction for hypoalbuminemia Os-Momo with vitamin D -Essential hypertension Zestoretic -DNR Care was discussed with the patient, family at the bedside, Dr. De La Rosa. Past Medical History Past Medical History: Cancer, Fibromyalgia, Hyperlipidemia, Hypertension, Thyroid Disorder Additional Past Medical History / Comment(s): spot in pelvis(metastsis) and dr. Ryan saw spot on lung Patient has sciatica pain on left side taking some tylenol for pain 10/18/22, lung CA, hyperthyroidism History of Any Multi-Drug Resistant Organisms: None Reported Past Surgical History: Appendectomy, Cholecystectomy, Hysterectomy, Joint Replacement Additional Past Surgical History / Comment(s): Colonoscopy, bilat. TKR, Lt. shoulder repair Past Anesthesia/Blood Transfusion Reactions: No Reported Reaction Additional Past Anesthesia/Blood Transfusion Reaction / Comment(s): Pain in chest after sedation - from the morphine(allergy). No blood transfusion Past Psychological History: No Psychological Hx Reported Smoking Status: Former smoker Past Alcohol Use History: None Reported Past Drug Use History: None Reported
--- NOTE | 2023-07-30 12:47 | P.PN ---
Subjective Progress Note Date: 07/30/23 This is a very pleasant 78-year-old female patient with a known history of hyperlipidemia, hypertension, hypothyroidism former smoker and recently found to have metastatic pulmonary adenocarcinoma to the bone. She also had malignant pleural effusions and had received a left Pleurx catheter on 06/02/[address] PET scan from 07/20/2023 revealed progression of disease with increased size with mildly diminished FDG activity in the left apical lung mass. There is increased soft tissue surrounding the pleura with increased metabolic activity. Additionally there is increasing FDG activity in numerous osseous metastatic lesions. She presented here to the emergency room last evening with complaints of severe pain with initiating in her left hip and traveling up into her left chest. She is seen today in the emergency department. She is currently resting on the stretcher. Awake and alert in mild discomfort. He has received a fentanyl patch, [place], Dilaudid for pain control. She has normal saline at KVO. She is on Lovenox for DVT prophylaxis. Count 10.6. Hemoglobin 11.4. Platelets 224. Sodium 130. Potassium 3.9. Bicarb 26. BUN 7. Creatinine 0.4. Calcium 7.6. Alk phos 201. She is maintaining good O2 saturations in the upper 90s on room air. She is afebrile. Hemodynamically stable. The patient is seen today July 29, 2023 in follow-up on the regular medical floor. She is currently resting fairly comfortably in bed. Maintaining good O2 saturations in the 90s on room air. She has normal staying at 20 MLS per hour. She is still having some ongoing discomfort in her hips and left chest. She is continued on fentanyl patches, Dilaudid, Naprosyn, Flexeril and [place]. She is being considered for possible palliative radiation to the left hip. She is afeb rile. Hemodynamically stable. The patient is seen today July 30, 2023 in follow-up on the regular medical floor. She is awake and alert in no acute distress. Resting in bed. She is afebrile. Hemodynamically stable. She is maintaining good O2 saturations in the 90s on room air. No IV fluids. She remains on Flexeril, fentanyl patch, [place], Dilaudid, Naprosyn. Her pain is better controlled today. No new labs today. She was initiated on Marinol to improve her appetite. Objective - Vital Signs Vital signs: Vital Signs Temp 97.9 F 07/30/23 07:26 Pulse 95 07/30/23 08:00 Resp 20 07/30/23 08:00 BP 113/70 07/30/23 07:26 Pulse Ox 98 07/30/23 07:26 FiO2 Intake & Output 07/29/23 07/30/23 07/30/23 18:59 06:59 18:59 Output Total 250 Balance -250 Weight 63.503 kg Output: Chest Tube Drainage 250 Pleural Catheter Left 250 Upper Other: # Voids 3 3 - Exam GENERAL EXAM: Alert, very pleasant 78-year-old female, on room air, currently comfortable in no apparent distress. HEAD: Normocephalic. EYES: Normal reaction of pupils, equal size. NOSE: Clear with pink turbinates. THROAT: No erythema or exudates. NECK: No masses, no JVD. CHEST: No chest wall deformity. Left-sided Pleurx catheter in place. LUNGS: Equal air entry with crackles, diminished in the left lung. CVS: S1 and S2 normal with no audible murmur, regular rhythm. ABDOMEN: No hepatosplenomegaly, normal bowel sounds, no guarding or rigidity. SPINE: No scoliosis or deformity SKIN: No rashes CENTRAL NERVOUS SYSTEM: No focal deficits, tone is normal in all 4 extremities. EXTREMITIES: There is no peripheral edema. No clubbing, no cyanosis. Peripheral pulses are intact. - Labs CBC & Chem 7: 07/28/23 07:10 07/28/23 07:10 Assessment and Plan Assessment: Intractable bone pain secondary to metastatic pulmonary adenocarcinoma. Receiving sotorasib and Xgeva. PET scan from 07/20/2023 reveals osseous lesions with increasing SUV involving the right iliac bone, iliac crest, left posterior iliac bone, sacrum, L5, L4, T10. Left metastatic pleural effusion post thoracentesis on May 19, 2023, recurrent and status post Pleurx catheter placement on 06/02/2023 Left apical lung mass positive for pulmonary adenocarcinoma diagnosed in October 2022 Chronic pain syndrome secondary to above Former smoker Hypertension Hyperlipidemia Plan: The patient was seen and evaluated Medications reviewed Currently stable and on room air Continue with pain management We will continue to follow I have personally seen and examined the patient, performed the documentation and the assessment and plan as written. Number of minutes spent on the visit: 10.
[2023-07-30] MEDS: LACTULOSE 20 GM/30 ML CUP PO ONE (14:00)
--- NOTE | 2023-07-30 14:40 | P.PN ---
Subjective Progress Note Date: 07/30/23 Principal diagnosis: Metastatic NSCLC -Afebrile, no acute events overnight -Has not used IV Dilaudid in the past 24 hours -Notes her pain is well-controlled on Dilaudid 10/325 every 4 hours as needed along with naproxen 250 mg 3 times daily every 8 hours -She did have episode of vomiting yesterday and has not had bowel movement since admission Objective - Vital Signs Vital signs: Vital Signs Temp 97.9 F 07/30/23 07:26 Pulse 95 07/30/23 08:00 Resp 20 07/30/23 08:00 BP 113/70 07/30/23 07:26 Pulse Ox 98 07/30/23 07:26 FiO2 Intake & Output 07/29/23 07/30/23 07/30/23 18:59 06:59 18:59 Output Total 250 Balance -250 Weight 63.503 kg Output: Chest Tube Drainage 250 Pleural Catheter Left 250 Upper Other: # Voids 3 3 - Constitutional Constitutional Comment(s): Appears more comfortable today's encounter General appearance: Present: cooperative, no acute distress - EENT Eyes: Present: EOMI - Respiratory Details: Nonlabored breathing - Cardiovascular Details: Warm and well-perfused - Gastrointestinal General gastrointestinal: Present: soft. Absent: distended, tenderness - Integumentary Integumentary: Absent: rash - Neurologic Neurologic: Present: CNII-XII intact. Absent: focal deficits - Labs CBC & Chem 7: 07/28/23 07:10 07/28/23 07:10 Assessment and Plan (1) Non-small cell lung cancer metastatic to bone Current Visit: Yes Status: Acute Code(s): C34.90 - MALIGNANT NEOPLASM OF UNSP PART OF UNSP BRONCHUS OR LUNG; C79.51 - SECONDARY MALIGNANT NEOPLASM OF BONE SNOMED Code(s): 719920939 (2) Cancer associated pain Current Visit: Yes Status: Acute Code(s): G89.3 - NEOPLASM RELATED PAIN (ACUTE) (CHRONIC) SNOMED Code(s): 05783712412783 (3) Constipation due to pain medication Current Visit: Yes Status: Acute Code(s): K59.03 - DRUG INDUCED CONSTIPATION SNOMED Code(s): 66764593 (4) Nausea & vomiting Current Visit: Yes Status: Acute Code(s): R11.2 - NAUSEA WITH VOMITING, UNSPECIFIED SNOMED Code(s): 50225411 Plan: #Left hip pain secondary to bone metastases -Progressively increasing pain prior to admission at the posterior left hip -PET/CT on 07/20/2023 noted increased FDG uptake in the left iliac crest consistent with disease progression -On fentanyl 75 mcg transdermal patch and [place] 10/325 every 6 hours prior to admission -Has not needed IV Dilaudid in the past 24 hours and appears more comfortable -Continue fentanyl 75 mcg/h transdermal patch, [place] 10/325 every 4 hours as needed, naproxen 250 mg every 8 hours, along with despiramine -She does remain interested in seeking palliative radiation therapy to the area in the left iliac crest -Consulted Dr. Diggs of radiation oncology will be placed today #Nausea, vomiting, constipation -Did have 1 episode of nausea and vomiting over the past 24 hours -Breakfast was tolerated this morning without any complications -Has not had bowel movement since admission, last 8 to 9 days ago -This is multifactorial secondary to pain medication along with GI upset from sotorasib -Continue holding sotorasib, which was held on admission -Bowel regimen added per primary team #Metastatic non-small cell lung cancer -Currently on sotorasib (KRAS G12C inhibitor) and xgeva for bone metastases with persistent nausea and decreased appetite -PET/CT on 07/20/2023 noted evidence of disease progression at known sites of disease with no new lesions -Brittany did inquire into her prognosis on today's visit -We did discuss 6-7 month progression free survival for clinical trials using sotorasib in 2nd line treatment for NSCLC with KRAS G12C mutation, but we discussed each individual case is different -Her also inquired into hospice, and we discussed the basic premise of hospice -At this time, no definitive decision regarding her long-term treatment plan is necessary at this time -Since he lives 90 minutes from home, we will plan on discharge in the morning on 08/01/2023, prior to her appointment with Dr. Raj De La Rosa -Discussion regarding resumption of sotorasib or changing course of action could be better discussed at that time Eugene De La Rosa MD Time with Patient: Greater than 30
--- NOTE | 2023-07-30 16:42 | P.PN ---
Progress Note - Text Progress Note Date: 07/30/23 Chief Complaint: Increase pain This is a very pleasant 78-year-old patient, follows with PCP Bettye Hi. Also oncologist Dr. De La Rosa. Patient has known metastatic adenocarcinoma of the lung. She is onSotorasib. Patient is been having progressive increased pain in the left chest wall/ribs and the left hip. She is on Duragesic patch 75 at home and [place]. Not controlled. Pain service/anesthesia was consulted from the ER. She has had significant nausea. Decreased appetite. Patient is accompanied by her . Cancer diagnosed in September 2022. Has had weight loss. Patient is ambulatory, unassisted July 28: Some improvement in pain. Patient on fentanyl patch 25. [place] 10. Dilaudid as needed. Also naproxen added for bone pain. Marinol was added for appetite. Did eat small amounts. Family at the bedside. Also also present. Continue current medications currently. Have the patient sit up in a chair. July 29: at the bedside. Dr. Philip De La Rosa at the bedside. Pain is better. Has been up in the chair. Has been up to the bathroom. No bowel movement for close to a week. Will give Dulcolax suppository. If no response then will give mag citrate otherwise enema. Consultation to Alexis Diggs from radiation. Current pain meds are not working better. Active Medications Hydrocodone Bitart/Acetaminophen (Hydrocodone/Apap 10-325mg 1 Each Tab) 1 each PO Q4HR [facility] Last Admin: 07/30/23 16:34 Dose: 1 each Atorvastatin Calcium (Atorvastatin 10 Mg Tab) 10 mg PO DAILY [facility] Last Admin: 07/30/23 08:17 Dose: 10 mg Calcium Carbonate (Calcium Carb-Vit D 500 Mg-5 Mcg Tab) 1 each PO BID-W/MEALS [facility] Last Admin: 07/30/23 16:35 Dose: 1 each Cyclobenzaprine HCl (Cyclobenzaprine 5 Mg Tab) 5 mg PO TID PRN PRN Reason: Muscle Spasm Desipramine HCl (Desipramine 25 Mg Tab) 25 mg PO HS [facility] Last Admin: 07/29/23 19:42 Dose: 25 mg Dronabinol (Dronabinol 2.5 Mg Cap) 5 mg PO AC-BID [facility] Last Admin: 07/30/23 16:35 Dose: 5 mg Enoxaparin Sodium (Enoxaparin 40 Mg/0.4 Ml Syringe) 40 mg SQ DAILY [facility] Last Admin: 07/30/23 08:17 Dose: 40 mg Famotidine (Famotidine 20 Mg Tab) 20 mg PO BID [facility] Last Admin: 07/30/23 08:17 Dose: 20 mg Fentanyl (Fentanyl 75mcg/Hr Patch) 1 patch TRANSDERM Q72H [facility]; Protocol Last Admin: 07/28/23 09:36 Dose: 1 patch Lisinopril/HCTZ (Lisinopril-Hctz 20-25 Mg 1 Each Tab) 1 each PO DAILY [facility] Last Admin: 07/30/23 08:17 Dose: 1 each Hydromorphone HCl (Hydromorphone 1 Mg/Ml 1 Ml Syringe) 1 mg IVP Q3HR PRN PRN Reason: Pain Last Admin: 07/29/23 08:13 Dose: 1 mg Sodium Chloride (Saline 0.9%) 1,000 mls @ 20 mls/hr IV .Q24H [facility] Last Admin: 07/29/23 19:29 Dose: Not Given Naloxone HCl (Naloxone 0.4 Mg/Ml 1 Ml Vial) 0.2 mg IV Q2M PRN PRN Reason: Opioid Reversal Naproxen (Naproxen 250 Mg Tab) 250 mg PO TID [facility] Last Admin: 07/30/23 16:35 Dose: 250 mg Sotorasib [Lumakras] (120 Mg Tablet) 360 mg PO BID [facility] Last Admin: 07/30/23 07:13 Dose: Not Given Ondansetron HCl (Ondansetron 4 Mg/2 Ml Vial) 4 mg IVP Q8HR PRN PRN Reason: Nausea And Vomiting Last Admin: 07/29/23 09:01 Dose: 4 mg Potassium Phos/Sodium Phos (Lrqnn-Eyt-Tswi 278-164-250 Mg 1 Each Packet) 1 each PO TID [facility] Last Admin: 07/30/23 16:35 Dose: 1 each Psyllium Hydrophilic Mucilloid (Psyllium Husk 100% 6 Gm Packet) 6 gm PO BID [facility] Last Admin: 07/30/23 08:16 Dose: 6 gm Social history: Patient smoked a pack a day for 40 years stopped in 2012. . Physical examination: VITAL SIGNS: 98.6, 101, 20, 100/59, 96% room air GENERAL: Lying in bed, doing better EYES: Pupils equal. Conjunctiva tino l. HEENT: External appearance of nose and ears normal, oral cavity grossly normal. NECK: JVD not raised; masses not palpable. HEART: First and second heart sounds are normal; no edema. LUNGS: Respiratory rate normal; decreased breath sounds. ABDOMEN: Soft, nontender, liver spleen not palpable, no masses palpable. PSYCH: Alert and oriented x3; mood and affect less anxious MUSCULOSKELETAL:No Clubbing/cyanosis;muscles-grossly intact. Some pain about the left rib cage and left hip. OA INVESTIGATIONS, reviewed in the clinical context: July 28, 2023: White count 10.6 hemoglobin 11.4 platelets 224 sodium 130 pota ssium 3.9 BUN 6.8 creatinine 0.4 calcium 7.6 phosphorus 1.3 albumin 3.2 Os-[place] Chest x-ray film: Left basal pleural catheter. Increasing opacity left lower lobe. Assessment plan: -Uncontrolled metastatic bone pain in the left left greater than left hip. Duragesic patch 75 mcg an hour, [place] 10 every 4 t. Pain service is following. Desipramine 25 mg added at night. Given bone pain - naproxen 250 mg 3 times daily. IV Dilaudid as needed -Severe constipation with decreased oral intake and narcotics not improving Metamucil. Add Dulcolax suppository today. If no response to get Metamucil an d/or enema -Acute on chronic medical debility due to underlying malignancy: Better Patient been up in a chair. Up to the bathroom. -Anorexia secondary to underlying malignancy Marinol 5 mg twice daily -metastatic adenocarcinoma of the lung. She is onSotorasib. Follows with oncologist Dr. De La Rosa -Hyperlipidemia Lipitor 10 mg a day -Hypophosphatemia Neutra-Phos supplement -Protein calorie malnutrition from decreased oral intake Ensure -Hypocalcemia, after correction for hypoalbuminemia Os-[place]omo with vitamin D -Essential hypertension Zestoretic -DNR Care was discussed with the patient, , Dr. Philip De La Rosa at the bedside. Consultation to Alexis Diggs from radiation oncology Past Medical History Past Medical History: Cancer, Fibromyalgia, Hyperlipidemia, Hypertension, Thyroid Disorder Additional Past Medical History / Comment(s): spot in pelvis(metastsis) and dr. Ryan saw spot on lung Patient has sciatica pain on left side taking some tylenol for pain 10/18/22, lung CA, hyperthyroidism History of Any Multi-Drug Resistant Organisms: None Reported Past Surgical History: Appendectomy, Cholecystectomy, Hysterectomy, Joint Replacement Additional Past Surgical History / Comment(s): Colonoscopy, bilat. TKR, Lt. shoulder repair Past Anesthesia/Blood Transfusion Reactions: No Reported Reaction Additional Past Anesthesia/Blood Transfusion Reaction / Comment(s): Pain in chest after sedation - from the morphine(allergy). No blood transfusion Past Psychological History: No Psychological Hx Reported Smoking Status: Former smoker Past Alcohol Use History: None Reported Past Drug Use History: None Reported
[2023-07-30] MEDS: MAGNESIUM CITRATE 296 ML BOTTLE PO ONE (20:43)
[2023-07-31 04:59] LABS: African American GFR (CKD) >90 (>60 ml/min/1.73 sqM); Anion Gap 5 mmol/L; Blood Urea Nitrogen 9 mg/dL (7-17); Calcium 8.8 mg/dL (8.4-10.2); Carbon Dioxide 30 mmol/L (22-30); Chloride 94 mmol/L (98-107); Glucose 84 mg/dL (74-99); Non-African American GFR(CKD) >90 (>60 ml/min/1.73 sqM); Phosphorus 2.3 mg/dL (2.5-4.5); Potassium 3.4 mmol/L (3.5-5.1); Sodium 129 mmol/L (137-145)
[2023-07-31] MEDS: ONDANSETRON 4 MG TAB PO PRN (08:28)
--- NOTE | 2023-07-31 11:57 | P.CONS ---
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 She was diagnosed in the fall of 2022. She underwent palliative radiotherapy to the right hip finishing in January 2023. She initiated chemotherapy, and subsequently had disease progression. She had a Pleurx catheter placed in June. She has now been treated with Lumikras. She is hospitalized secondary to progressively worsening left hip pain. The patient presented to the ER on July 26. She was complaining of severe left-sided hip pain. Her most recent PET/CT from July 19 did show multiple abnormal bone lesions including the left posterior iliac. She had been taking 75 mcg patch of fentanyl as well as [place] as needed. Her pain is currently 6 out of 10. It is exacerbated with moving her weightbearing. She has been able to ambulate to the bathroom. Her other complaint at this time is nausea. She did have one episode of vomiting earlier today. She also has had significant constipation, and has just move the bowels once for the first time in a week. Review of Systems Constitutional: Denies chills, Denies fever Eyes: denies blurred vision Cardiovascular: Reports dyspnea on exertion, Denies chest pain Respiratory: Reports dyspnea, Denies cough Gastrointestinal: Denies BRBPR Musculoskeletal: Reports as per HPI Integumentary: Denies rash Neurological: Denies aphasia, Denies ataxia, Denies confusion Psychiatric: Denies anxiety Past Medical History Past Medical History: Cancer, Fibromyalgia, Hyperlipidemia, Hypertension, Thyroid Disorder Additional Past Medical History / Comment(s): spot in pelvis(metastsis) and dr. Ryan saw spot on lung Patient has sciatica pain on left side taking some tylenol for pain 10/18/22, lung CA, hyperthyroidism History of Any Multi-Drug Resistant Organisms: None Reported Past Surgical History: Appendectomy, Cholecystectomy, Hysterectomy, Joint Replacement Additional Past Surgical History / Comment(s): Colonoscopy, bilat. TKR, Lt. shoulder repair Past Anesthesia/Blood Transfusion Reactions: No Reported Reaction Additional Past Anesthesia/Blood Transfusion Reaction / Comm: Pain in chest after sedation - from the morphine(allergy). No blood transfusion Past Psychological History: No Psychological Hx Reported Additional Psychological History / Comment(s): takes cymbalta for fibromyalgia Smoking Status: Former smoker Past Alcohol Use History: None Reported Additional Past Alcohol Use History / Comment(s): Quit 2013 smoked 1 ppd x 40 yrs Past Drug Use History: None Reported - Past Family History Mother Family Medical History: Cancer Additional Family Medical History / Comment(s): multiple myeloma Sister(s) Family Medical History: Cancer Additional Family Medical History / Comment(s): multiple myeloma Brother(s) Family Medical History: Cancer Additional Family Medical History / Comment(s): lung cancer Medications and Allergies Home Medications Medication Instructions Recorded Confirmed Type Atorvastatin [Lipitor] 10 mg PO DAILY 09/29/22 07/27/23 History Lisinopril-Hctz 20-25 mg 1 tab PO DAILY 09/29/22 07/27/23 History [Zestoretic 20-25] Cyclobenzaprine [Flexeril] 5 mg PO TID PRN 07/27/23 07/27/23 History HYDROcodone/APAP 10-325MG [[place] 1 tab PO Q6HR PRN 07/27/23 07/27/23 History 10-325] Ondansetron Odt [Zofran Odt] 8 mg PO Q8HR PRN 07/27/23 07/27/23 History Sotorasib [Lumakras] 360 mg PO BID 07/27/23 07/27/23 History fentaNYL 25MCG/HR PATCH [Duragesic 25 mcg TRANSDERM Q72H 07/27/23 07/27/23 History 25MCG/HR] fentaNYL 50MCG/HR PATCH [Duragesic 50 mcg TRANSDERM Q72H 07/27/23 07/27/23 History 50MCG/HR] Desipramine [Norpramin] 25 mg PO HS #30 tablet 07/28/23 Rx Allergies Allergy/AdvReac Type Severity Reaction Status Date / Time codeine Allergy chest pain Verified 07/27/23 18:30 & EMERALD lidocaine Allergy chest pain Verified 07/27/23 18:30 & EMERALD morphine Allergy chest pain Verified 07/27/23 18:30 & EMERALD Physical Exam Vitals: Vital Signs Temp Pulse Resp BP Pulse Ox 07/31/23 08:03 94 17 07/31/23 07:22 97.6 F 94 17 118/73 94 L 07/31/23 01:57 97.4 F L 91 20 102/65 96 07/30/23 19:40 98.4 F 53 L 19 132/73 91 L 07/30/23 13:54 98.6 F 101 H 20 100/59 96 Intake and Output 07/30/23 07/31/23 07/31/23 22:59 06:59 14:59 Other: # Voids 3 3 - Constitutional General appearance: no acute distress - EENT Eyes: EOMI, PERRLA ENT: hard of hearing - Neck Neck: no lymphadenopathy - Respiratory Respiratory: right: CTA, left: diminished - Cardiovascular Rhythm: regular - Integumentary Integumentary: no calor - Neurologic Neurologic: CNII-XII intact - Musculoskeletal Musculoskeletal: strength equal bilaterally - Psychiatric Psychiatric: A&O x's 3, appropriate affect Results CBC & Chem 7: 07/28/23 07:10 07/31/23 03:29 Labs: Abnormal Lab Results - Last 24 Hours (Table) 07/31/23 Range/Units 03:29 Sodium 129 L (137-145) mmol/L Potassium 3.4 L (3.5-5.1) mmol/L Chloride 94 L (98-107) mmol/L Creatinine 0.44 L (0.52-1.04) mg/dL Phosphorus 2.3 L (2.5-4.5) mg/dL Assessment and Plan Assessment: The patient is a 70-year-old female with a history of a 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 She was diagnosed in the fall of 2022. She underwent palliative radiotherapy to the right hip finishing in January 2023. She initiated chemotherapy, and subsequently had disease progression. She had a Pleurx catheter placed in June. She has now been treated with Lumikras. She is hospitalized secondary to progressively worsening left hip pain. Plan: 1. Left hip pain: The patient's most recent imaging shows worsening areas of bone metastasis. She reports pain that corresponds to a left posterior iliac lesion. The patient previously obtained very good palliative response to radiation to the right hip in the fall of 2022. I explained we could repeat a similar course of treatment. I discussed that she would first undergo CT simulation for treatment planning. I discussed the treatment will be delivered in approximately 1 week, or as little as 1 fraction. I discussed that possible side effects include, but are not limited to; fatigue, skin irritation, alteration in bowel habits, loose stools, and low risk of late toxicity. 2. NSCLC - metastatic: The patient is hopeful for discharge tomorrow in the morning. She has an outpatient appointment with Dr. Raj De La Rosa. They are uncertain if Lumakras is helping at this point. She is concerned this may be contributing to her nausea. Of note, if the patient's nausea does not improve would consider neuro imaging. Time with Patient: Greater than 30
--- NOTE | 2023-07-31 12:10 | CDI ---
Documentation Clarification Form Date: 07/31/2023 11:45:17 AM From: Emily Cuba RN, CCDS Phone: [phone] Admit Date: 07/27/2023 05:28:00 PM Patient Name: Brittany Srinivasan Visit Number: [id number] Discharge Date: ATTENTION: The Clinical Documentation Specialists (CDI) and [facility] Coding Staff appreciate your assistance in clarifying documentation. Please respond to the clarification below the line at the bottom and electronically sign. The CDI & [facility] Coding staff will review the response and follow-up if needed. Please note: Queries are made part of the Legal Health Record. If you have any questions, please contact the author of this message via ITS. Dr. Hamilton Stokes Malnutrition is documented in the H/P and subsequent progress notes. Additional clarification regarding the severity of malnutrition is requested. History/Risk Factors: Cancer, Fibromyalgia, Hyperlipidemia, Hypertension, Thyroid Disorder Clinical Indicators: 78-year-old patient known metastatic adenocarcinoma of the lung and Left hip pain secondary to bone metastases. She has had significant nausea. Decreased appetite and has had weight loss. Protein calorie malnutrition from decreased oral intake. Current BMI: 23.3 Appetite Poor 1-3 months 0-25% Labs Na: 130, CL: 95, BUN 6.8, Calcium 7.[address] Consult Assessment: Underweight, Weight Loss: 18.144kg >20% in 9 months; Moderate fat loss in orbital region Nutrition Diagnosis: Malnutrition Chronic, moderate Treatment: Ensure compact TID Monitor intake Marinol 5 MG PO BID 07/27-07/27 Please clarify the severity of malnutrition, if known: [ ] Mild Protein-Calorie Malnutrition [ + ] Moderate Protein-Calorie Malnutrition [ ] Severe Protein-Calorie Malnutrition [ ] Other condition, please specify [ ] Unable to Determine (Template Last Revised: October 2022) MTDD
[2023-07-31] MEDS ORDERED: ZOLEDRONIC ACID 4 MG in SODIUM CHLORIDE 0.9% 100 ML IV NR (13:45)
--- NOTE | 2023-07-31 14:35 | CT ---
EXAMINATION TYPE: CT brain wo con DATE OF EXAM: 07/31/2023 COMPARISON: None INDICATION: lethargic h/o lung CA and mets to bones DLP: 1129 mGycm, Automated exposure control for dose reduction was used. CONTRAST: None CT of the brain is performed utilizing 3 mm thick sections through the posterior fossa and 3 mm thick sections through the remaining calvarium. Study is performed within 24 hours of arrival to the hosp ital. No abnormal hyperdensity is present to suggest an acute intracranial hemorrhage. No mass lesion is evident. No acute infarcts are evident. No suspicious areas of vasogenic edema or obvious mass is evident. Mor e subtle metastasis not evident on noncontrast CT may be better visualized with a contrast MRI. Ventricles and sulci are appropriate for the patient age. Paranasal sinuses and mastoid air cells within the [id number] are clear. IMPRESSION: 1. No acute intracranial process radiographically apparent. 2. MRI with contrast may be more sensitive for smaller metastasis.
--- NOTE | 2023-07-31 15:14 | P.PN ---
Subjective Progress Note Date: 07/31/23 No acute events. Patient resting comfortably in bed at today's visit. Patient is reporting left-sided hip pain. Radiation oncology following plan for palliative RT to left hip. Continue to hold sotorasib Objective - Vital Signs Vital signs: Vital Signs Temp 97.6 F 07/31/23 07:22 Pulse 94 07/31/23 08:03 Resp 17 07/31/23 08:03 BP 118/73 07/31/23 07:22 Pulse Ox 94 L 07/31/23 07:22 FiO2 Intake & Output 07/30/23 07/31/23 07/31/23 18:59 06:59 18:59 Output Total 150 Balance -150 Output: Chest Tube Drainage 150 Pleural Catheter Left 150 Upper Other: # Voids 3 3 - Constitutional General appearance: Present: average body habitus, no acute distress - EENT Eyes: Present: anicteric sclerae, EOMI ENT: Present: hearing grossly normal - Respiratory Details: breathing is even and unlabored - Cardiovascular Details: skin warm and dry - Integumentary Integumentary: Absent: cyanotic - Neurologic Neurologic: Present: CNII-XII intact - Musculoskeletal Musculoskeletal: Present: strength equal bilaterally - Psychiatric Psychiatric: Present: A&O x's 3 - Labs CBC & Chem 7: 07/28/23 07:10 07/31/23 03:29 Labs: Abnormal Lab Results - Last 24 Hours (Table) 07/31/23 Range/Units 03:29 Sodium 129 L (137-145) mmol/L Potassium 3.4 L (3.5-5.1) mmol/L Chloride 94 L (98-107) mmol/L Creatinine 0.44 L (0.52-1.04) mg/dL Phosphorus 2.3 L (2.5-4.5) mg/dL Assessment and Plan (1) Cancer associated pain Current Visit: Yes Status: Acute Priority: High Code(s): G89.3 - NEOPLASM RELATED PAIN (ACUTE) (CHRONIC) SNOMED Code(s): 59224116912864 (2) Constipation due to pain medication Current Visit: Yes Status: Acute Priority: Medium Code(s): K59.03 - DRUG INDUCED CONSTIPATION SNOMED Code(s): 60207002 (3) Nausea & vomiting Current Visit: Yes Status: Acute Priority: Medium Code(s): R11.2 - NAUSEA WITH VOMITING, UNSPECIFIED SNOMED Code(s): 41929800 (4) Non-small cell lung cancer metastatic to bone Current Visit: Yes Status: Acute Priority: High Code(s): C34.90 - MALIGNANT NEOPLASM OF UNSP PART OF UNSP BRONCHUS OR LUNG; C79.51 - SECONDARY MALIGNANT NEOPLASM OF BONE SNOMED Code(s): 608870870 Plan: #Left hip pain secondary to bone metastases -Progressively increasing pain prior to admission at the posterior left hip -PET/CT on 07/20/2023 noted increased FDG uptake in the left iliac crest consistent with disease progression -On fentanyl 75 mcg transdermal patch and [place] 10/325 every 6 hours prior to admission -Has not needed IV Dilaudid > 48 hours and appears more comfortable -Continue fentanyl 75 mcg/h transdermal patch, [place] 10/325 every 4 hours as needed, naproxen 250 mg every 8 hours, along with despiramine -She does remain interested in seeking palliative radiation therapy to the area in the left iliac crest -Consult placed to Dr. Diggs, spoke with him regarding case, and they will plan for palliative RT to left iliac crest -Missed last Xgeva injection on 07/24, will order dose of zometa 4mg #Nausea, vomiting, constipation -Did have 1 episode of nausea and vomiting this morning, but sx improving. -Tolerating oral intake -Has not had BM in 8-9 days. Did have large BM this morning -This is multifactorial secondary to pain medication along with GI upset from sotorasib -Continue holding sotorasib -Bowel regimen added per primary team #Metastatic non-small cell lung cancer -Currently on sotorasib (KRAS G12C inhibitor) and xgeva for bone metastases with persistent nausea and decreased appetite -PET/CT on 07/20/2023 noted evidence of disease progression at known sites of disease with no new lesions -Brittany did inquire into her prognosis on today's visit -We did discuss 6-7 month progression free survival for clinical trials using sotorasib in 2nd line treatment for NSCLC with KRAS G12C mutation, but we discussed each individual case is different -Her also inquired into hospice, and we discussed the basic premise of hospice -At this time, no definitive decision regarding her long-term treatment plan is necessary at this time -Since she lives 90 minutes away from clinic, we will plan on discharge in the morning on 08/01/2023, prior to her appointment with Dr. Raj De La Rosa -Discussion regarding resuming sotorasib vs changing course of action could be better discussed at that time Doctor attests: I performed a history and physical examination of this patient, developed impression and plan of care. Discussed with dictator. I agree with dictators note, documented as a scribe.
--- NOTE | 2023-07-31 17:31 | P.PN ---
Progress Note - Text Progress Note Date: 07/31/23 Chief Complaint: Increase pain This is a very pleasant 78-year-old patient, follows with PCP Bettye Hi. Also oncologist Dr. De La Rosa. Patient has known metastatic adenocarcinoma of the lung. She is onSotorasib. Patient is been having progressive increased pain in the left chest wall/ribs and the left hip. She is on Duragesic patch 75 at home and [place]. Not controlled. Pain service/anesthesia was consulted from the ER. She has had significant nausea. Decreased appetite. Patient is accompanied by her . Cancer diagnosed in September 2022. Has had weight loss. Patient is ambulatory, unassisted July 28: Some improvement in pain. Patient on fentanyl patch 25. [place] 10. Dilaudid as needed. Also naproxen added for bone pain. Marinol was added for appetite. Did eat small amounts. Family at the bedside. Also also present. Continue current medications currently. Have the patient sit up in a chair. July 29: at the bedside. Dr. Philip De La Rosa at the bedside. Pain is better. Has been up in the chair. Has been up to the bathroom. No bowel movement for close to a week. Will give Dulcolax suppository. If no response then will give mag citrate otherwise enema. Consultation to Alexis Diggs from radiation. Current pain meds are not working better. July 30: Patient had 1 episode of vomiting this a.m. No abdominal pain. Overall pain is better controlled. at the bedside.. Patient was seen by Dr. Alexis Diggs from radiation oncology. Considering outpatient left hip radiation treatment for palliation. Diet was discussed. Pepcid changed over to Protonix. Patient did have a bowel movement Active Medications Hydrocodone Bitart/Acetaminophen (Hydrocodone/Apap 10-325mg 1 Each Tab) 1 each PO Q4HR [facility] Last Admin: 07/31/23 16:46 Dose: 1 each Atorvastatin Calcium (Atorvastatin 10 Mg Tab) 10 mg PO DAILY [facility] Last Admin: 07/31/23 07:59 Dose: 10 mg Calcium Carbonate (Calcium Carb-Vit D 500 Mg-5 Mcg Tab) 1 each PO BID-W/MEALS [facility] Last Admin: 07/31/23 16:45 Dose: 1 each Cyclobenzaprine HCl (Cyclobenzaprine 5 Mg Tab) 5 mg PO TID PRN PRN Reason: Muscle Spasm Desipramine HCl (Desipramine 25 Mg Tab) 25 mg PO HS [facility] Last Admin: 07/30/23 19:35 Dose: 25 mg Dronabinol (Dronabinol 2.5 Mg Cap) 5 mg PO AC-BID [facility] Last Admin: 07/31/23 16:45 Dose: 5 mg Enoxaparin Sodium (Enoxaparin 40 Mg/0.4 Ml Syringe) 40 mg SQ DAILY [facility] Last Admin: 07/31/23 07:59 Dose: 40 mg Fentanyl (Fentanyl 75mcg/Hr Patch) 1 patch TRANSDERM Q72H [facility]; Protocol Last Admin: 07/31/23 07:58 Dose: 1 patch Lisinopril/HCTZ (Lisinopril-Hctz 20-25 Mg 1 Each Tab) 1 each PO DAILY [facility] Last Admin: 07/31/23 08:00 Dose: 1 each Hydromorphone HCl (Hydromorphone 1 Mg/Ml 1 Ml Syringe) 1 mg IVP Q3HR PRN PRN Reason: Pain Last Admin: 07/29/23 08:13 Dose: 1 mg Sodium Chloride (Saline 0.9%) 1,000 mls @ 20 mls/hr IV .Q24H [facility] Last Admin: 07/31/23 16:46 Dose: Not Given Zoledronic Acid 4 mg/ Sodium (Chloride) 105 mls @ 210 mls/hr IV ONCE NR Stop: 08/01/23 23:59 Naloxone HCl (Naloxone 0.4 Mg/Ml 1 Ml Vial) 0.2 mg IV Q2M PRN PRN Reason: Opioid Reversal Naproxen (Naproxen 250 Mg Tab) 250 mg PO TID [facility] Last Admin: 07/31/23 16:45 Dose: 250 mg Ondansetron HCl (Ondansetron 4 Mg/2 Ml Vial) 4 mg IVP Q8HR PRN PRN Reason: Nausea And Vomiting Last Admin: 07/29/23 09:01 Dose: 4 mg Ondansetron HCl (Ondansetron 4 Mg Tab) 4 mg PO Q8HR PRN PRN Reason: Nausea And Vomiting Last Admin: 07/31/23 08:28 Dose: 4 mg Potassium Phos/Sodium Phos (Jezrv-Rkn-Nrnr 278-164-250 Mg 1 Each Packet) 1 each PO TID [facility] Last Admin: 07/31/23 16:46 Dose: 1 each Psyllium Hydrophilic Mucilloid (Psyllium Husk 100% 6 Gm Packet) 6 gm PO BID [facility] Last Admin: 07/31/23 11:15 Dose: Not Given Social history: Patient smoked a pack a day for 40 years stopped in 2012. . Physical examination: VITAL SIGNS: 97.6, 94, 17, 1 one 8 x 73, 94% room air GENERAL: Lying in bed EYES: Pupils equal. Conjunctiva tino l. HEENT: External appearance of nose and ears normal, oral cavity grossly normal. NECK: JVD not raised; masses not palpable. HEART: First and second heart sounds are normal; no edema. LUNGS: Respiratory rate normal; decreased breath sounds. ABDOMEN: Soft, nontender, liver spleen not palpable, no masses palpable. PSYCH: Alert and oriented x3; mood and affect normal MUSCULOSKELETAL:No Clubbing/cyanosis;muscles-grossly intact. Some pain about the left rib cage and left hip. OA INVESTIGATIONS, reviewed in the clinical context: July 30: Sodium 129 potassium 3.4 creatinine 0.44 phosphorus 2.3 July 28, 2023: White count 10.6 hemoglobin 11.4 platelets 224 sodium 130 potassium 3.9 BUN 6.8 creatinine 0.4 calcium 7.6 phosphorus 1.3 albumin 3.2 Os- Momo Chest x-ray film: Left basal pleural catheter. Increasing opacity left lower l obe. Assessment plan: -Uncontrolled metastatic bone pain in the left left greater than left hip.: Better Duragesic patch 75 mcg an hour, [place] 10 every 4 t. Pain service is following. Desipramine 25 mg added at night. Given bone pain - naproxen 250 mg 3 times daily. IV Dilaudid as needed Seen by Dr. Alexis Diggs from radiation oncology: Outpatient palliative radiation -Severe constipation with decreased oral intake and narcotics: Better with laxatives -Acute on chronic medical debility due to underlying malignancy: Better Patient been up in a chair. Up to the bathroom. Did walk in the bathroom. -Anorexia secondary to underlying malignancy Marinol 5 mg twice daily -metastatic adenocarcinoma of the lung. She is on Sotorasib. Follows with oncologist Dr. Raj De La Rosa -Hyperlipidemia Lipitor 10 mg a day -Hypophosphatemia Neutra-Phos supplement -Protein calorie malnutrition from decreased oral intake Ensure -Hypocalcemia, after correction for hypoalbuminemia Os-Momo with vitamin D -Essential hypertension Zestoretic -Hyponatremia from decreased oral intake -DNR Discussed with patient. Seen by radiation oncology. Plan for discharge tomorrow. Activity discussed. With patient and Past Medical History Past Medical History: Cancer, Fibromyalgia, Hyperlipidemia, Hypertension, Thyroid Disorder Additional Past Medical History / Comment(s): spot in pelvis(metastsis) and dr. Ryan saw spot on lung Patient has sciatica pain on left side taking some tylenol for pain 10/18/22, lung CA, hyperthyroidism History of Any Multi-Drug Resistant Organisms: None Reported Past Surgical History: Appendectomy, Cholecystectomy, Hysterectomy, Joint Replacement Additional Past Surgical History / Comment(s): Colonoscopy, bilat. TKR, Lt. shoulder repair Past Anesthesia/Blood Transfusion Reactions: No Reported Reaction Additional Past Anesthesia/Blood Transfusion Reaction / Comment(s): Pain in chest after sedation - from the morphine(allergy). No blood transfusion Past Psychological History: No Psychological Hx Reported Smoking Status: Former smoker Past Alcohol Use History: None Reported
[2023-07-31] MEDS: PANTOPRAZOLE 40 MG TABLET PO SCH (17:49)
[2023-07-31] MEDS: POTASSIUM CHLORIDE ER 20 MEQ TAB.ER PO STA (17:52)
--- NOTE | 2023-07-31 18:05 | P.PN ---
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 She also had malignant pleural effusions and had received a left Pleurx catheter on 06/02/[address] PET scan from 07/20/2023 revealed progression of disease with increased size with mildly diminished FDG activity in the left apical lung mass. There is increased soft tissue surrounding the pleura with increased metabolic activity. Additionally there is increasing FDG activity in numerous osseous metastatic lesions. She presented here to the emergency room last evening with complaints of severe pain with initiating in her left hip and traveling up into her left chest. She is seen today in the emergency department. She is currently resting on the stretcher. Awake and alert in mild discomfort. He has received a fentanyl patch, Whitmer, Dilaudid for pain control. She has normal saline at KVO. She is on Lovenox for DVT prophylaxis. Count 10.6. Hemoglobin 11.4. Platelets 224. Sodium 130. Potassium 3.9. Bicarb 26. BUN 7. Creatinine 0.4. Calcium 7.6. Alk phos 201. She is maintaining good O2 saturations in the upper 90s on room air. She is afebrile. Hemodynamically stable. The patient is seen today July 29, 2023 in follow-up on the regular medical floor. She is currently resting fairly comfortably in bed. Maintaining good O2 saturations in the 90s on room air. She has normal staying at 20 MLS per hour. She is still having some ongoing discomfort in her hips and left chest. She is continued on fentanyl patches, Dilaudid, Naprosyn, Flexeril and Whitmer. She is being considered for possible palliative radiation to the left hip. She is af ebrile. Hemodynamically stable. The patient is seen today July 30, 2023 in follow-up on the regular medical floor. She is awake and alert in no acute distress. Resting in bed. She is afebrile. Hemodynamically stable. She is maintaining good O2 saturations in the 90s on room air. No IV fluids. She remains on Flexeril, fentanyl patch, Whitmer, Dilaudid, Naprosyn. Her pain is better controlled today. No new labs today. She was initiated on Marinol to improve her appetite. On today's evaluation of 07/31/2023, seen the patient for a follow-up. The patient is going to undergo radiation therapy for pain control as the patient has metastatic adenocarcinoma of the lung. The patient is currently on room air oxygen with a pulse ox of 96%. Electrolytes show a sodium level of 129 with a BUN of 9 and a creatinine of 0.4. The patient has a fentanyl patch for pain control and the patient is also receiving Dilaudid 1 mg every 3 hours on a as needed basis. She is on Naprosyn to 50 mg p.o. 3 times daily. She is also on zoledronic acid and Lovenox for DVT prophylaxis. Radiation oncologist on the case. The patient has a recent diagnosis of metastatic pulm adenocarcinoma with mets to the bone and the patient is also known to have malignant left-sided pleural effusion and she required a Pleurx catheter insertion on 06/02/2023 and the most recent chest x-ray from 07/28/2023 shows the catheter being in place and the resolution of the previously noted pneumothorax and there is still residual opacity in the left lower lobe probably due to some atelectasis and effusion. Nodular densities also seen in the periphery of the right upper lobe. CAT scan of the brain was also done today that showed no acute abnormalities. MRI of the brain will be needed to rule out any significant metastases. The patient is on Marinol for appetite. Objective - Vital Signs Vital signs: Vital Signs Temp 97.6 F 07/31/23 07:22 Pulse 94 07/31/23 08:03 Resp 17 07/31/23 08:03 BP 118/73 07/31/23 07:22 Pulse Ox 94 L 07/31/23 07:22 FiO2 Intake & Output 07/30/23 07/31/23 07/31/23 18:59 06:59 18:59 Other: # Voids 3 3 - Exam GENERAL EXAM: Alert, very pleasant 78-year-old female, on room air, currently comfortable in no apparent distress. HEAD: Normocephalic. EYES: Normal reaction of pupils, equal size. NOSE: Clear with pink turbinates. THROAT: No erythema or exudates. NECK: No masses, no JVD. CHEST: No chest wall deformity. Left-sided Pleurx catheter in place. LUNGS: Equal air entry with crackles, diminished in the left lung. CVS: S1 and S2 normal with no audible murmur, regular rhythm. ABDOMEN: No hepatosplenomegaly, normal bowel sounds, no guarding or rigidity. SPINE: No scoliosis or deformity SKIN: No rashes CENTRAL NERVOUS SYSTEM: No focal deficits, tone is normal in all 4 extremities. EXTREMITIES: There is no peripheral edema. No clubbing, no cyanosis. Peripheral pulses are intact. - Labs CBC & Chem 7: 07/28/23 07:10 07/31/23 03:29 Labs: Abnormal Lab Results - Last 24 Hours (Table) 07/31/23 Range/Units 03:29 Sodium 129 L (137-145) mmol/L Potassium 3.4 L (3.5-5.1) mmol/L Chloride 94 L (98-107) mmol/L Creatinine 0.44 L (0.52-1.04) mg/dL Phosphorus 2.3 L (2.5-4.5) mg/dL Assessment and Plan Plan: Intractable bone pain secondary to metastatic pulmonary adenocarcinoma. Receiving sotorasib and Xgeva. PET scan from 07/20/2023 reveals osseous lesions with increasing SUV involving the right iliac bone, iliac crest, left posterior iliac bone, sacrum, L5, L4, T10. The patient is currently undergoing Perative radiation therapy to the spine. Left metastatic pleural effusion post thoracentesis on May 19, 2023, recurrent and status post Pleurx catheter placement on 06/02/2023, most recent chest x-ray was noted and the patient not having any significant respite distress. Will continue periodic drainage. Currently on room air oxygen. 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
[2023-08-01 08:00] VITALS: BP 101/65; PULSE 99; RESP 17; TEMP 97.7
--- NOTE | 2023-08-01 16:01 | P.DS ---
Providers Date of admission: 07/27/23 17:28 Expected date of discharge: 08/01/23 Attending physician: Hamilton Stokes Consults: 07/27/23 17:25 Consult Physician Routine Consulting Provider: Eugene De La Rosa Consult Reason/Comments: known Do you want consulting provider notified?: Yes Consult Physician Routine Consulting Provider: Ross Ryan Consult Reason/Comments: known Do you want consulting provider notified?: Yes 07/30/23 16:39 Consult Physician Routine Consulting Provider: Oscar Diggs Consult Reason/Comments: Radiation cancer Do you want consulting provider notified?: Yes Primary care physician: Bettye Hi [facility] Course: Chief Complaint: Increase pain This is a very pleasant 78-year-old patient, follows with PCP Bettye Hi. Also oncologist Dr. De La Rosa. Patient has known metastatic adenocarcinoma of the lung. She is onSotorasib. Patient is been having progressive increased pain in the left chest wall/ribs and the left hip. She is on Duragesic patch 75 at home and Todd. Not controlled. Pain service/anesthesia was consulted from the ER. She has had significant nausea. Decreased appetite. Patient is accompanied by her . Cancer diagnosed in September 2022. Has had weight loss. Patient is ambulatory, unassisted July 28: Some improvement in pain. Patient on fentanyl patch 25. Todd 10. Dilaudid as needed. Also naproxen added for bone pain. Marinol was added for appetite. Did eat small amounts. Family at the bedside. Also also present. Continue current medications currently. Have the patient sit up in a chair. July 29: at the bedside. Dr. Philip De La Rosa at the bedside. Pain is better. Has been up in the chair. Has been up to the bathroom. No bowel mov ement for close to a week. Will give Dulcolax suppository. If no response then will give mag citrate otherwise enema. Consultation to Alexis Diggs from radiation. Current pain meds are not working better. July 30: Patient had 1 episode of vomiting this a.m. No abdominal pain. Overall pain is better controlled. at the bedside.. Patient was seen by Dr. Alexis Diggs from radiation oncology. Considering outpatient left hip radiation treatment for palliation. Diet was discussed. Pepcid changed over to Protonix. Patient did have a bowel movement July 31: Patient doing better. Pain better controlled. Tolerating a light diet. Patient has appointment this afternoon with Dr. Alfaro. Outpatient palliative radiation. Discussed with the patient and the at the [facility]. Questions answered.. Pain medications discussed. Social history: Patient smoked a pack a day for 40 years stopped in 2012. . Physical examination: VITAL SIGNS: 97.7, 99, 17, 101/65, 94% room air GENERAL: Lying in bed EYES: Pupils equal. Conjunctiva tino l. HEENT: External appearance of nose and ears normal, oral cavity grossly normal. NECK: JVD not raised; masses not palpable. HEART: First and second heart sounds are normal; no edema. LUNGS: Respiratory rate normal; decreased breath sounds. ABDOMEN: Soft, nontender, liver spleen not palpable, no masses palpable. PSYCH: Alert and oriented x3; mood and affect normal MUSCULOSKELETAL:No Clubbing/cyanosis;muscles-grossly intact. Some pain about the left rib cage and left hip. OA INVESTIGATIONS, reviewed in the clinical context: July 30: Sodium 129 potassium 3.4 creatinine 0.44 phosphorus 2.3 July 28, 2023: White count 10.6 hemoglobin 11.4 platelets 224 sodium 130 potassium 3.9 BUN 6.8 creatinine 0.4 calcium 7.6 phosphorus 1.3 albumin 3.2 Os- Momo Chest x-ray film: Left basal pleural catheter. Increasing opacity left lower lobe. Assessment plan: -Uncontrolled metastatic bone pain in the left left greater than left hip.: Better Duragesic patch 75 mcg an hour, Todd 10 every 4 t. Pain service is following. Desipramine 25 mg added at night. Given bone pain - naproxen 250 mg 3 times daily. IV Dilaudid as needed Seen by Dr. Alexis Diggs from radiation oncology: Outpatient palliative radiation -Severe constipation with decreased oral intake and narcotics: Better with laxatives -Acute on chronic medical debility due to underlying malignancy: Better Patient been up in a chair. Up to the bathroom. Did walk in the bathroom. -Anorexia secondary to underlying malignancy Marinol 5 mg twice daily -metastatic adenocarcinoma of the lung. She is on Sotorasib. Follows with oncologist Dr. Raj De La Rosa -Hyperlipidemia Lipitor 10 mg a day -Hypophosphatemia Neutra-Phos supplement -Protein calorie malnutrition from decreased oral intake Ensure -Hypocalcemia, after correction for hypoalbuminemia Os-Momo with vitamin D -Essential hypertension Zestoretic -Hyponatremia from decreased oral intake -DNR Disposition: Home Past Medical History Past Medical History: Cancer, Fibromyalgia, Hyperlipidemia, Hypertension, Thyroid Disorder Additional Past Medical History / Comment(s): spot in pelvis(metastsis) and dr. Ryan saw spot on lung Patient has sciatica pain on left side taking some ty lenol for pain 10/18/22, lung CA, hyperthyroidism History of Any Multi-Drug Resistant Organisms: None Reported Past Surgical History: Appendectomy, Cholecystectomy, Hysterectomy, Joint Replacement Additional Past Surgical History / Comment(s): Colonoscopy, bilat. TKR, Lt. shoulder repair Past Anesthesia/Blood Transfusion Reactions: No Reported Reaction Additional Past Anesthesia/Blood Transfusion Reaction / Comment(s): Pain in chest after sedation - from the morphine(allergy). No blood transfusion Past Psychological History: No Psychological Hx Reported Smoking Status: Former smoker Past Alcohol Use History: None Reported Patient Condition at Discharge: Fair Plan - Discharge Summary Discharge Rx Participant: Yes New Discharge Prescriptions: New Desipramine [Norpramin] 25 mg PO HS #30 tablet droNABinol [Marinol] 5 mg PO AC-BID #60 cap Psyllium Husk 100% [Metamucil Packet] 6 gm PO BID packet Naproxen [Naprosyn] 250 mg PO BID #60 tab Pantoprazole [Protonix] 40 mg PO AC-BID #60 tab Continue Atorvastatin [Lipitor] 10 mg PO DAILY fentaNYL 25MCG/HR PATCH [Duragesic 25MCG/HR] 25 mcg TRANSDERM Q72H Ondansetron Odt [Zofran ODT] 8 mg PO Q8HR PRN PRN Reason: Nausea And Vomiting Lisinopril-Hctz 20-25 mg [Zestoretic 20-25] 1 tab PO DAILY HYDROcodone/APAP 10-325MG [Todd 10-325] 1 tab PO Q6HR PRN PRN Reason: Pain Cyclobenzaprine [Flexeril] 5 mg PO TID PRN PRN Reason: Muscle Spasm fentaNYL 50MCG/HR PATCH [Duragesic 50MCG/HR] 50 mcg TRANSDERM Q72H Sotorasib [Lumakras] 360 mg PO BID Discharge Medication List Atorvastatin [Lipitor] 10 mg PO DAILY 09/29/22 [History] Lisinopril-Hctz 20-25 mg [Zestoretic 20-25] 1 tab PO DAILY 09/29/22 [History] Cyclobenzaprine [Flexeril] 5 mg PO TID PRN 07/27/23 [History] HYDROcodone/APAP 10-325MG [Todd 10-325] 1 tab PO Q6HR PRN 07/27/23 [History] Ondansetron Odt [Zofran ODT] 8 mg PO Q8HR PRN 07/27/23 [History] Sotorasib [Lumakras] 360 mg PO BID 07/27/23 [History] fentaNYL 25MCG/HR PATCH [Duragesic 25MCG/HR] 25 mcg TRANSDERM Q72H 07/27/23 [History] fentaNYL 50MCG/HR PATCH [Duragesic 50MCG/HR] 50 mcg TRANSDERM Q72H 07/27/23 [History] Desipramine [Norpramin] 25 mg PO HS #30 tablet 07/28/23 [Rx] Naproxen [Naprosyn] 250 mg PO BID #60 tab 08/01/23 [Rx] Pantoprazole [Protonix] 40 mg PO AC-BID #60 tab 08/01/23 [Rx] Psyllium Husk 100% [Metamucil Packet] 6 gm PO BID packet 08/01/23 [Rx] droNABinol [Marinol] 5 mg PO AC-BID #60 cap 08/01/23 [Rx] Follow up Appointment(s)/Referral(s): [facility] [NON-STAFF] - As Needed (Hospital bed) [facility], [NON-STAFF] - As Needed Oscar Diggs MD [STAFF PHYSICIAN] - 08/09/23 11:15 am () Bettye Hi MD [Primary Care Provider] - 1-2 days Raj De La Rosa MD [STAFF PHYSICIAN] - 08/01/23 11:15 am Discharge Disposition: HOME SELF-CARE
== END 2023-08-01 11:10 | disposition home or self-care (01) | DRG 948 ==
LOC: EC 17:03 → 5NMEDONC 17:28 → 4SSUR 07-28 23:50
PROVIDERS: ADMIT Hospitalist; ATTEND Hospitalist
DX: G89.3 Neoplasm related pain (acute) (chronic) (principal); E44.0 Moderate protein-calorie malnutrition; C78.02 Secondary malignant neoplasm of left lung; C78.01 Secondary malignant neoplasm of right lung; C79.51 Secondary malignant neoplasm of bone; J91.0 Malignant pleural effusion; E83.51 Hypocalcemia; E83.39 Other disorders of phosphorus metabolism; I10 Essential (primary) hypertension; E03.9 Hypothyroidism, unspecified; K59.03 Drug induced constipation; T40.605A Adverse effect of unspecified narcotics, initial encounter; E78.5 Hyperlipidemia, unspecified; Z66 Do not resuscitate; K30 Functional dyspepsia; T45.1X5A Adverse effect of antineoplastic and immunosuppressive drugs, initial encounter; M79.7 Fibromyalgia; Z96.653 Presence of artificial knee joint, bilateral; Z68.23 Body mass index [BMI] 23.0-23.9, adult; Z87.891 Personal history of nicotine dependence; Z79.899 Other long term (current) drug therapy; Z80.1 Family history of malignant neoplasm of trachea, bronchus and lung; Z80.7 Family history of other malignant neoplasms of lymphoid, hematopoietic and related tissues; Z88.5 Allergy status to narcotic agent
CPT/HCPCS: 36415; 70450; 71045; 77290; 77332; 80048; 80053; 83735; 83880; 84100; 85025; 96361; 96372; 96374; 96375; 96376; 99285

== ENCOUNTER 2023-08-04 14:39 | Emergency (ER) | payer MEDICARE ==
[2023-08-04 14:45] VITALS: RESP 18
--- NOTE | 2023-08-04 15:00 | ED ---
General Adult HPI - General Chief complaint: Recheck/Abnormal Lab/Rx Stated complaint: Generalized pain Time Seen by Provider: 08/04/23 14:47 Source: patient, family, RN notes reviewed Mode of arrival: ambulatory Limitations: no limitations - History of Present Illness Initial comments: Patient is a 78-year-old female present to the emergency department with concerns for pain. Discomfort is chest and back more so on the left side. Discomfort has been present for weeks or months. 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 Patient is undergoing radiation therapy for this. Patient also has some hip discomfort. Patient recently had [place] added and did take it twice a day. Patient also recently had her fentanyl patch increased from 75-100. - Related Data Home Medications Medication Instructions Recorded Confirmed Atorvastatin [Lipitor] 10 mg PO DAILY 09/29/22 07/27/23 Lisinopril-Hctz 20-25 mg 1 tab PO DAILY 09/29/22 07/27/23 [Zestoretic 20-25] Cyclobenzaprine [Flexeril] 5 mg PO TID PRN 07/27/23 07/27/23 HYDROcodone/APAP 10-325MG [[place] 1 tab PO Q6HR PRN 07/27/23 07/27/23 10-325] Ondansetron Odt [Zofran ODT] 8 mg PO Q8HR PRN 07/27/23 07/27/23 Sotorasib [Lumakras] 360 mg PO BID 07/27/23 07/27/23 fentaNYL 25MCG/HR PATCH [Duragesic 25 mcg TRANSDERM Q72H 07/27/23 07/27/23 25MCG/HR] fentaNYL 50MCG/HR PATCH [Duragesic 50 mcg TRANSDERM Q72H 07/27/23 07/27/23 50MCG/HR] Previous Rx's Medication Instructions Recorded Desipramine [Norpramin] 25 mg PO HS #30 tablet 07/28/23 Naproxen [Naprosyn] 250 mg PO BID #60 tab 08/01/23 Pantoprazole [Protonix] 40 mg PO AC-BID #60 tab 08/01/23 Psyllium Husk 100% [Metamucil 6 gm PO BID packet 08/01/23 Packet] droNABinol [Marinol] 5 mg PO AC-BID #60 cap 08/01/23 Allergies Allergy/AdvReac Type Severity Reaction Status Date / Time codeine Allergy chest pain Verified 08/04/23 14:44 & EMERALD lidocaine Allergy chest pain Verified 08/04/23 14:44 & EMERALD morphine Allergy chest pain Verified 08/04/23 14:44 & EMERALD Review of Systems ROS Statement: Those systems with pertinent positive or pertinent negative responses have been documented in the HPI. ROS Other: All systems not noted in ROS Statement are negative. Constitutional: Denies: fever Eyes: Denies: eye pain ENT: Denies: ear pain Respiratory: Denies: dyspnea Cardiovascular: Reports: as per HPI, chest pain Endocrine: Denies: fatigue Gastrointestinal: Denies: abdominal pain Musculoskeletal: Reports: as per HPI, back pain Past Medical History Past Medical History: Cancer, Fibromyalgia, Hyperlipidemia, Hypertension, Thyroid Disorder Additional Past Medical History / Comment(s): spot in pelvis(metastsis) and dr. Ryan saw spot on lung Patient has sciatica pain on left side taking some tylenol for pain 10/18/22, lung CA, hyperthyroidism History of Any Multi-Drug Resistant Organisms: None Reported Past Surgical History: Appendectomy, Cholecystectomy, Hysterectomy, Joint R eplacement Additional Past Surgical History / Comment(s): Colonoscopy, bilat. TKR, Lt. shoulder repair Past Anesthesia/Blood Transfusion Reactions: No Reported Reaction Additional Past Anesthesia/Blood Transfusion Reaction / Comment(s): Pain in chest after sedation - from the morphine(allergy). No blood transfusion Past Psychological History: No Psychological Hx Reported Smoking Status: Former smoker Past Alcohol Use History: None Reported Past Drug Use History: None Reported - Past Family History Mother Family Medical History: Cancer Additional Family Medical History / Comment(s): multiple myeloma Sister(s) Family Medical History: Cancer Additional Family Medical History / Comment(s): multiple myeloma Brother(s) Family Medical History: Cancer Additional Family Medical History / Comment(s): lung cancer General Exam Limitations: no limitations General appearance: alert, in no apparent distress Head exam: Present: normocephalic Eye exam: Present: normal appearance Neck exam: Present: normal inspection Respiratory exam: Present: decreased breath sounds (Left base) Cardiovascular Exam: Present: regular rate, normal rhythm GI/Abdominal exam: Present: soft. Absent: tenderness Extremities exam: Present: normal inspection Neurological exam: Present: alert Psychiatric exam: Present: normal affect, normal mood Skin exam: Present: normal color Course Vital Signs 08/04/23 14:42 Temperature 98.1 F Pulse Rate 116 H Respiratory 18 Rate Blood Pressure 90/64 O2 Sat by Pulse 99 Oximetry Medical Decision Making - Medical Decision Making Was pt. sent in by a medical professional or institution ([facility], TELECOMMUNICATIONS ADMINISTRATOR, urgent care, hospital, or [facility]...) When possible be specific @ -No Did you speak to anyone other than the patient for history (EMS, parent, family, police, friend...)? What history was obtained from this source @ - is present and helps provide history including pain medication the patient is currently Did you review nursing and triage notes (agree or disagree)? Why? @ -I reviewed and agree with nursing and triage notes Were old charts reviewed (outside hosp., previous admission, EMS record, old EKG, old radiological studies, urgent care reports/EKG's, [facility] records)? Report findings @ -No old charts were reviewed Differential Diagnosis (chest pain, altered mental status, abdominal pain women, abdominal pain men, vaginal bleeding, weakness, fever, dyspnea, syncope, headache, dizziness, GI bleed, back pain, seizure, CVA, palpatations, mental health, musculoskeletal)? @ -Differential Musculoskeletal Muscular strain, contusion, ligament sprain, fracture, arthritis, septic arthritis, bursitis, cellulitis, muscle spasm, nerve compression, DVT, arterial occlusion, herpes zoster, electrolyte abnormality, tumor.... This is not meant to be in all inclusive list EKG interpreted by me (3pts min.). @ -As above X-rays interpreted by me (1pt min.). @ -Chest x-ray shows left-sided effusion CT interpreted by me (1pt min.). @ -None done U/S interpreted by me (1pt. min.). @ -None done What testing was considered but not performed or refused? (CT, X-rays, U/S, labs)? Why? @ -None What meds were considered but not given or refused? Why? @ -None Did you discuss the management of the patient with other professionals (professionals i.e. [facility], TELECOMMUNICATIONS ADMINISTRATOR, lab, RT, psych nurse, social work coordinator, hammer runner, teacher, safety security officer, egg caser)? Give summary @ -Case was discussed in detail with Dr. Llamas who would like to treat patient out of the hospital at this time. He agrees with pain medication and would like to add ibuprofen for the next 5 days. Was smoking cessation discussed for >3mins.? @ -No Was critical care preformed (if so, how long)? @ -No Were there social determinants of health that impacted care today? How? (Homelessness, low income, unemployed, alcoholism, drug addiction, transportation, low edu. Level, literacy, decrease access to med. care, skilled nursing, rehab)? @ -No Was there de-escalation of care discussed even if they declined (Discuss DNR or withdrawal of care, Hospice)? DNR status @ -No What co-morbidities impacted this encounter? (DM, HTN, Smoking, COPD, CAD, Cancer, CVA, ARF, Chemo, Hep., AIDS, mental health diagnosis, sleep apnea, morbid obesity)? @ -Underlying metastatic cancer Was patient admitted / discharged? Hospital course, mention meds given and route, prescriptions, significant lab abnormalities, going to OR and other pertinent info. @ -Patient reevaluated and feeling much better. Patient and family updated on results and plan. Patient will be discharged. Patient states she does have Mot rin 600 at home and will take this for the next 5 days. Undiagnosed new problem with uncertain prognosis? @ -No Drug Therapy requiring intensive monitoring for toxicity (Heparin, Nitro, Insulin, Cardizem)? @ -No Were any procedures done? @ -No Diagnosis/symptom? @ -Chest pain, back pain, hip pain Acute, or Chronic, or Acute on Chronic? @ -All acute on chronic Uncomplicated (without systemic symptoms) or Complicated (systemic symptoms)? @ -Default Side effects of treatment? @ -No Exacerbation, Progression, or Severe Exacerbation? @ -No Poses a threat to life or bodily function? How? (Chest pain, [place], [place], pneumonia, PE, COPD, DKA, ARF, appy, cholecystitis, CVA, Diverticulitis, Homicidal, Suicidal, threat to staff... and all critical care pts) @ -No - Lab Data Result diagrams: 08/04/23 15:42 08/04/23 15:42 Lab Results 08/04/23 08/04/23 Range/Units 15:42 15:42 WBC 10.0 (3.8-10.6) k/uL RBC 4.63 (3.80-5.40) m/uL Hgb 12.0 (11.4-16.0) gm/dL Hct 38.5 (34.0-46.0) % MCV 83.2 (80.0-100.0) fL MCH 25.9 (25.0-35.0) pg MCHC 31.1 (31.0-37.0) g/dL RDW 14.8 (11.5-15.5) % Plt Count 354 (150-450) k/uL MPV 7.0 Neutrophils % 80 % Lymphocytes % 10 % Monocytes % 8 % Eosinophils % 0 % Basophils % 0 % Neutrophils # 8.0 H (1.3-7.7) k/uL Lymphocytes # 1.0 (1.0-4.8) k/uL Monocytes # 0.8 (0-1.0) k/uL Eosinophils # 0.0 (0-0.7) k/uL Basophils # 0.0 (0-0.2) k/uL Sodium 130 L (137-145) mmol/L Potassium 3.8 (3.5-5.1) mmol/L Chloride 95 L (98-107) mmol/L Carbon Dioxide 27 (22-30) mmol/L Anion Gap 8 mmol/L BUN 17 (7-17) mg/dL Creatinine 0.60 (0.52-1.04) mg/dL Est GFR (CKD-EPI)AfAm >90 (>60 ml/min/1.73 sqM) Est GFR (CKD-EPI)NonAf 88 (>60 ml/min/1.73 sqM) Glucose 118 H (74-99) mg/dL Calcium 8.4 (8.4-10.2) mg/dL Total Bilirubin 0.8 (0.2-1.3) mg/dL AST 23 (14-36) U/L ALT 15 (4-34) U/L Alkaline Phosphatase 224 H (38-126) U/L Total Protein 6.3 (6.3-8.2) g/dL Albumin 3.1 L (3.5-5.0) g/dL Disposition Clinical Impression: Chronic pain Disposition: HOME SELF-CARE Condition: Stable Instructions (If sedation given, give patient instructions): Chronic Pain (ED) Additional Instructions: Please do follow-up with your primary care physician and oncologist beginning the week. Return for increased pain, difficulty breathing, fevers, worsening or changing symptoms or other concerns. Use ibuprofen 3 times daily for the next 5 days. Is patient prescribed a controlled substance at d/c from ED?: No Referrals: Bettye Hi MD [Primary Care Provider] - 1-2 days Time of Disposition: 16:58
--- NOTE | 2023-08-04 15:33 | XR ---
EXAMINATION TYPE: XR chest 2V DATE OF EXAM: 08/04/2023 3:27 PM CLINICAL INDICATION:Female, 78 years old with history of cp; [facility] COMPARISON: Chest radiographs from 07/28/2023 TECHNIQUE: XR chest 2V Frontal and lateral views of the chest. FINDINGS: Lungs/Pleura: Small left pleural effusion There is no evidence of right pleural effusion, focal conso lidation, or pneumothorax. Pulmonary vascularity: Unremarkable. Heart/mediastinum: Cardiomediastinal silhouette is unremarkable. Atherosclerotic calcifications are seen in the aorta. Musculoskeletal: No acute osseous pathology. Other findings: None Lines/Tubes: Left thoracotomy tube is present without evidence of pneumothorax. IMPRESSION: Left thoracotomy tube with small left pleural effusion. No pneumothorax.
[2023-08-04] MEDS: HYDROmorphone 1 MG/ML 1 ML SYRINGE IVP STA (15:48)
[2023-08-04] MEDS: HYDROmorphone 1 MG/ML 1 ML SYRINGE IM STA (15:48)
[2023-08-04 16:01] LABS: Basophils % (A) 0 %; Eosinophils % (A) 0 %; HCT 38.5 % (34.0-46.0); Lymphocytes % (A) 10 %; MCH 25.9 pg (25.0-35.0); MCHC 31.1 g/dL (31.0-37.0); MCV 83.2 fL (80.0-100.0); Monocytes # (A) 0.8 k/uL (0-1.0); Monocytes % (A) 8 %; Neutrophils % (A) 80 %; Platelet Count 354 k/uL (150-450); RBC 4.63 m/uL (3.80-5.40); RDW 14.8 % (11.5-15.5)
[2023-08-04 16:16] LABS: ALT 15 U/L (4-34); AST 23 U/L (14-36); African American GFR (CKD) >90 (>60 ml/min/1.73 sqM); Albumin 3.1 g/dL (3.5-5.0); Alkaline Phosphatase 224 U/L (38-126); Anion Gap 8 mmol/L; Blood Urea Nitrogen 17 mg/dL (7-17); Calcium 8.4 mg/dL (8.4-10.2); Carbon Dioxide 27 mmol/L (22-30); Chloride 95 mmol/L (98-107); Glucose 118 mg/dL (74-99); Non-African American GFR(CKD) 88 (>60 ml/min/1.73 sqM); Potassium 3.8 mmol/L (3.5-5.1); Sodium 130 mmol/L (137-145); Total Bilirubin 0.8 mg/dL (0.2-1.3); Total Protein 6.3 g/dL (6.3-8.2)
[2023-08-04 18:06] VITALS: BP 132/68; PULSE 94; TEMP 97.4
== END 2023-08-04 17:27 | disposition home or self-care (01) ==
LOC: EC 14:39
DX: J90 Pleural effusion, not elsewhere classified (principal); G89.29 Other chronic pain; M54.9 Dorsalgia, unspecified; M25.559 Pain in unspecified hip; Z88.4 Allergy status to anesthetic agent; Z88.5 Allergy status to narcotic agent; Z85.9 Personal history of malignant neoplasm, unspecified; Z87.891 Personal history of nicotine dependence
CPT/HCPCS: 36415; 80053; 85025; 71046; 99285; 96372; J1170